=== PATIENT | female | born 1960 | race Two or more races ===

== ENCOUNTER → 2022-01-06 07:58 | Outpatient (BNVA) | payer OTHER, SELFPAY | PROVIDERS: PCP Internal Medicine; Visit Provider Surgery | DX: E66.9 Obesity, unspecified (principal); Z68.35 Body mass index [BMI] 35.0-35.9, adult; I10 Essential (primary) hypertension; E11.9 Type 2 diabetes mellitus without complications; E78.5 Hyperlipidemia, unspecified; G47.30 Sleep apnea, unspecified; K21.9 Gastro-esophageal reflux disease without esophagitis; M19.90 Unspecified osteoarthritis, unspecified site; J44.9 Chronic obstructive pulmonary disease, unspecified; M32.9 Systemic lupus erythematosus, unspecified; Z90.49 Acquired absence of other specified parts of digestive tract | CPT/HCPCS: Q3014 ==

== ENCOUNTER → 2022-01-27 12:30 | Outpatient (BNVA) | payer OTHER, SELFPAY | PROVIDERS: PCP Internal Medicine; Visit Provider Counselor Mental Health | DX: F33.40 Major depressive disorder, recurrent, in remission, unspecified (principal) | CPT/HCPCS: 90791 ==

== ENCOUNTER 2022-01-28 09:46 | Outpatient (REF) | payer OTHER, SELFPAY ==
--- NOTE | ~2022-01-28 | XR_ITS ---
EXAMINATION: XR CHEST CLINICAL INFORMATION: Bariatric service evaluation, E66.9 COMPARISON: None TECHNIQUE: 2 views of the chest were obtained. FINDINGS: Lungs are clear. Vascularity normal. Heart size normal. No airspace consolidation or groundglass opacity. Costophrenic sulci are clear. The hilar and mediastinal contours are normal. No acute bony abnormality. There are surgical clips right upper quadrant abdomen, likely prior cholecystectomy. XR/XR chest 2V IMPRESSION: Unremarkable examination.
--- NOTE | 2022-01-28 09:53 | ECG_ITS ---
Test Reason : obesity Blood Pressure : / mmHG Vent. Rate : 073 BPM Atrial Rate : 073 BPM P-R Int : 172 ms QRS Dur : 090 ms QT Int : 392 ms P-R-T Axes : 065 034 040 degrees QTc Int : 431 ms Normal sinus rhythm with sinus arrhythmia Normal ECG No previous ECGs available Referred By: Mark Quevedo Electronically Signed By:LOTTIE GIL
[2022-01-28 10:03] LABS: MANUAL DIFF FLAG NO
[2022-01-28 11:40] LABS: Estimated Average Glucose 137 mg/dL; Hemoglobin A1c % 6.4 %
[2022-01-28 11:45] LABS: Basophils Percent Auto 0.8 % (0-2); Eosinophils Absolute Auto 0.1 X10*3/uL (0.0-0.4); Eosinophils Percent Auto 3.1 % (0-4); Hematocrit 40.7 % (37.0-47.0); Hemoglobin 12.8 g/dl (12.0-16.0); Lymphocytes Absolute Auto 1.4 X10*3/uL (1.2-4.9); Lymphocytes Percent Auto 38.7 % (20-40); Mean Corpuscular HGB Conc 31.4 g/dl (31.0-35.0); Mean Corpuscular Hemoglobin 27.9 pg (27.0-33.0); Mean Corpuscular Volume 88.9 fL (80.0-98.0); Monocytes Absolute Auto 0.3 X10*3/uL (0.1-1.2); Neutrophils Absolute Auto 1.7 x10*3/uL (2.0-8.3); Neutrophils Percent Auto 48.4 % (45-73); Platelet Count 281 X10*3/uL (160-400); Red Blood Count 4.58 X10*6/uL (4.20-5.50); Red Cell Distribution Width 14.6 % (11.0-16.0); White Blood Count 3.6 X10*3/uL (4.8-10.8)
[2022-01-28 12:25] LABS: Alanine Aminotransferase 24 U/L (0-31); Alkaline Phosphatase 113 U/L (39-117); Anion Gap 17 (12-20); Aspartate Amino Transferase 21 U/L (5-31); Bilirubin Total 0.5 mg/dL (0.0-1.0); Blood Urea Nitrogen 20 mg/dL (9-16); C Reactive Protein 1.21 mg/dL (< or = 0.50); Calcium 9.2 mg/dL (8.4-10.2); Carbon Dioxide 23 mmol/L (22-29); Chloride 106 mmol/L (96-108); Cholesterol 128 mg/dL; Estimated Glomerular Filt Rate > 60; Glucose Random 116 mg/dL (60-115); HDL Cholesterol 47 mg/dL; Iron 50 mcg/dL (30-160); LDL Cholesterol Calculated 65 mg/dl; Percent Iron Saturation 16 % (15-50); Potassium 4.3 mmol/L (3.3-5.1); Sodium 142 mmol/L (135-145); Total Iron Binding Capacity 308 mcg/dL (228-428); Total Protein 7.4 g/dL (6.5-8.0); Triglycerides 83 mg/dL; Unsaturated Iron Binding 258 ug/dL
[2022-01-28 12:27] LABS: Ferritin 32 ng/mL (10-250); TSH reflex Free T4 0.81 uIU/mL (0.32-4.0); Vitamin D 25-OH Total 32.7 ng/mL (>30)
[2022-01-28 12:51] LABS: Folate 16.4 ng/mL (> or = 4.0); Vitamin B12 380 pg/mL (200-900)
[2022-01-28 12:58] LABS: Insulin 22 uU/mL (2-29)
[2022-01-29 12:37] LABS: Calcium (PTHI) 9.2 mg/dL (8.6-10.4); PTHI 47 pg/mL (16-77)
[2022-01-31 23:32] LABS: Zinc 82 mcg/dL (60-130)
[2022-02-01 20:47] LABS: Vitamin A 56 mcg/dL (38-98)
[2022-02-02 14:41] LABS: Vitamin B1 <6 nmol/L (8-30)
== END 2022-01-28 09:47 | disposition home or self-care (01) ==
LOC: HO.XRAY 09:46
PROVIDERS: PCP Internal Medicine; Visit Provider Surgery
DX: M32.9 Systemic lupus erythematosus, unspecified (principal); M19.90 Unspecified osteoarthritis, unspecified site; K21.9 Gastro-esophageal reflux disease without esophagitis; J44.9 Chronic obstructive pulmonary disease, unspecified; I10 Essential (primary) hypertension; G47.30 Sleep apnea, unspecified; E78.5 Hyperlipidemia, unspecified; E11.9 Type 2 diabetes mellitus without complications; E66.9 Obesity, unspecified; Z68.35 Body mass index [BMI] 35.0-35.9, adult; Z90.49 Acquired absence of other specified parts of digestive tract
CPT/HCPCS: 36415; 71046; 80053; 80061; 82306; 82607; 82728; 82746; 83036; 83525; 83540; 83970; 84425; 84443; 84590; 84630; 85025; 86140; 93005

== ENCOUNTER → 2022-01-30 11:03 | Outpatient (BNVA) | payer OTHER, SELFPAY | PROVIDERS: PCP Internal Medicine; Visit Provider Dietitian, Registered | DX: E66.9 Obesity, unspecified (principal) | CPT/HCPCS: 97802 ==

== ENCOUNTER 2022-02-07 06:26 | Day surgery (SDC) | payer OTHER, SELFPAY ==
--- NOTE | 2022-02-01 12:22 | MHC.SHP ---
Pre-Procedural Eval Section A Date of Service: 02/01/22 The patient is an INPATIENT: No The History & Physical has been completed within 30 days and I have reviewed it.: No Section B Chief Complaint: Gastro-esophageal reflux disease without esophagit Relevant Family History (Specify if Yes): No Relevant Social History: None Present Medications: None Medical History: No relevant PMH History of Previous Operations: No relevant previous surgery Allergies: Allergies Allergy/AdvReac Type Severity Reaction Status Date / Time ibuprofen [Ibuprofen] Allergy Unknown THROAT Verified 01/06/22 08:10 CLOSES Review of Systems Sugical H&P ROS: Negative: Constitution, Cardiovascular, Respiratory, Neurological, Psychiatric, Hem-Onc, Allergic/Immunologic, Gastrointestinal, Genitourinary, Musculoskeletal, Integumentary, Endocrine and Eyes/Ears/Nose/Throat Exam Surgical H&P Exam: Normal: HEENT, Normal: Heart, Normal: Lungs, Normal: Extremities, Normal: Abdomen, Normal: Skin and Normal: Neurological Plan Diagnosis/Plan: Unchanged (EGD to assess for esophagitis and Barraza's. Risks of bleeding & perforation were discussed with patient.) I have reviewed the history and physical and performed a pertinent physical examination on my patient. No changes have occurred unless specified.
--- NOTE | 2022-02-06 09:38 | P.CONAN_ITS ---
Documented by User: Charisse Avila NP 02/06/22 09:43 HPI - Anesthesia Eval Consult details Narrative: 61yo F for Upper Endoscopy PMFSH Active Problems Active Problems: All Active Problems (Updated 02/06/22 @ 07:26 by Sydnee Mcconnell, JOANNE) Obesity (Acute) BMI 35.0-35.9,adult (Acute) Hypertension (Acute) Non-insulin dependent type 2 diabetes mellitus (Acute) Hyperlipidemia (Acute) Sleep apnea with use of continuous positive airway pressure (CPAP) (Acute) GERD (gastroesophageal reflux disease) (Acute) DJD (degenerative joint disease) (Acute) COPD (chronic obstructive pulmonary disease) (Acute) Lupus (systemic lupus erythematosus) (Acute) History of cholecystectomy (Acute) Major depressive disorder, recurrent, in remission, unspecified (Acute) Past Medical History Medical History Diabetes Elevated cholesterol GERD (gastroesophageal reflux disease) HTN (hypertension) Lupus Surgical History Surgical History History of back surgery History of History of esophagogastroduodenoscopy (EGD) History of partial hysterectomy Hx of cholecystectomy Hx of colonoscopy Social History Social History Patient Tobacco Use Status: Former Tobacco user Quit Date: 2 yrs ago Use of substances other than those prescribed or required for medical reasons: No Are you DNR?: No Advance Directives: No Advance Directives Information Provided: Yes Meds Allergies Allergy/AdvReac Type Severity Reaction Status Date / Time latex Allergy Hives Verified 02/07/22 06:38 Home Medications Medication Instructions Recorded Confirmed Last Taken Type atorvastatin 20 mg tablet 20 mg PO DAILY 01/02/22 01/06/22 Unknown History blood-glucose meter (FreeStyle #1 ea 01/02/22 01/06/22 Unknown History Lite Meter kit) calcium carbonate 600 mg-vitamin 1 tab PO BID 01/02/22 01/06/22 Unknown History D3 10 mcg (400 unit) tablet diltiazem HCl 300 mg capsule,24 300 mg PO DAILY 01/02/22 01/06/22 Unknown History hr,extended release (Tiadylt ER) estradiol 0.01% (0.1 mg/gram) 0.1 g vaginal QWEEK 01/02/22 01/06/22 Unknown History vaginal cream fluticasone furoate 200 1 ea inhalation DAILY 01/02/22 01/06/22 Unknown History mcg-vilanterol 25 mcg/dose inhalation powder (Breo Ellipta) fluticasone propionate 50 50 spray intranasal PRN Congestion 01/02/22 01/06/22 Unknown History mcg/actuation nasal spray,suspension furosemide 20 mg tablet 20 mg PO DAILY PRN Edema 01/02/22 01/06/22 Unknown History lisinopril 5 mg tablet 5 mg PO DAILY 01/02/22 01/06/22 Unknown History metformin 500 mg tablet 500 mg PO DAILY 01/02/22 01/06/22 Unknown History metoprolol tartrate 25 mg tablet 25 mg PO DAILY 01/02/22 01/06/22 Unknown History nabumetone 750 mg tablet 750 mg PO BID 01/02/22 01/06/22 Unknown History ondansetron HCl 4 mg tablet 4 mg PO Q8H PRN Nausea 01/02/22 01/06/22 Unknown History pantoprazole 40 mg tablet,delayed 40 mg PO BID 01/02/22 01/06/22 Unknown History release Exam Exam Date and Time: February 06, 2022 0938 Pertinent Lab Results Pertinent Lab Results: Laboratory Tests 01/28/22 01/28/22 10:02 10:02 WBC 3.6 L Hgb 12.8 Hct 40.7 Plt Count 281 Sodium 142 Potassium 4.3 Chloride 106 Carbon Dioxide 23 BUN 20 H Creatinine 0.80 Narrative Narrative: EKG 01/2022 Vent. Rate : 073 BPM ? ? Atrial Rate : 073 BPM ?? P-R Int : 172 ms? QRS Dur : 090 ms ? ? QT Int : 392 ms ? ? ? P-R-T Axes : 065 034 040 degrees ?? QTc Int : 431 ms ? Normal sinus rhythm with sinus arrhythmia Normal ECG No previous ECGs available Assessment and Plan Assessment Anesthesia Assessment: Chart Reviewed Documented by User: yAden Mehta MD 02/07/22 07:16 [facility] Past Medical History Medical History Diabetes Elevated cholesterol GERD (gastroesophageal reflux disease) HTN (hypertension) Lupus Family History Family history of problems with anesthesia: No Surgical History Surgical History History of back surgery History of History of esophagogastroduodenoscopy (EGD) History of partial hysterectomy Hx of cholecystectomy Hx of colonoscopy History of Problems with Anesthesia: No Social History Social History Patient Tobacco Use Status: Former Tobacco user Quit Date: 2 yrs ago Use of substances other than those prescribed or required for medical reasons: No Are you DNR?: No Advance Directives: No Advance Directives Information Provided: Yes Meds Allergies Allergy/AdvReac Type Severity Reaction Status Date / Time latex Allergy Hives Verified 02/07/22 06:38 Home Medications Medication Instructions Recorded Confirmed Last Taken Type atorvastatin 20 mg tablet 20 mg PO DAILY 01/02/22 01/06/22 Unknown History blood-glucose meter (FreeStyle #1 ea 01/02/22 01/06/22 Unknown History Lite Meter kit) calcium carbonate 600 mg-vitamin 1 tab PO BID 01/02/22 01/06/22 Unknown History D3 10 mcg (400 unit) tablet diltiazem HCl 300 mg capsule,24 300 mg PO DAILY 01/02/22 01/06/22 Unknown History hr,extended release (Tiadylt ER) estradiol 0.01% (0.1 mg/gram) 0.1 g vaginal QWEEK 01/02/22 01/06/22 Unknown History vaginal cream fluticasone furoate 200 1 ea inhalation DAILY 01/02/22 01/06/22 Unknown History mcg-vilanterol 25 mcg/dose inhalation powder (Breo Ellipta) fluticasone propionate 50 50 spray intranasal PRN Congestion 01/02/22 01/06/22 Unknown History mcg/actuation nasal spray,suspension furosemide 20 mg tablet 20 mg PO DAILY PRN Edema 01/02/22 01/06/22 Unknown History lisinopril 5 mg tablet 5 mg PO DAILY 01/02/22 01/06/22 Unknown History metformin 500 mg tablet 500 mg PO DAILY 01/02/22 01/06/22 Unknown History metoprolol tartrate 25 mg tablet 25 mg PO DAILY 01/02/22 01/06/22 Unknown History nabumetone 750 mg tablet 750 mg PO BID 01/02/22 01/06/22 Unknown History ondansetron HCl 4 mg tablet 4 mg PO Q8H PRN Nausea 01/02/22 01/06/22 Unknown History pantoprazole 40 mg tablet,delayed 40 mg PO BID 01/02/22 01/06/22 Unknown History release Exam Airway Mallampati Class: II TM Dist: >3cm Neck ROM: Full Denture: Upper and Lower Loose/Missing/Broken Teeth: Yes Heart: [id number] Lungs: cta b/l Assessment and Plan Assessment Anesthesia Assessment: Anesthesia Plan Discussed Final Anesthetic Review Family History of Problems with Anesthesia: No History of Problems with Anesthesia: No NPO: Yes ASA Class: III Final Preanesthetic Review: No Changes in Pt Med Stat, Meds/Allgs Chart Reviewed, Consent Obtained/Reviewed and Anes Risks/Benef Reviewed Patient Risk: Intermediate Procedure Risk: Low Assessment/Block/Sedation in SS: Assess/Block/Sedation-SS Anesthetic Plan Anesthetic Plan: MAC: and Agree w/ Assess. and Plan Disposition: Standard PACU
[2022-02-06 12:46] LABS: COVID-19 Test Negative (Negative); IDNOW Serial# 16C4AD1C
[2022-02-07 06:43] VITALS: BMI 35.5
[2022-02-07 07:16] VITALS: BP 132/61; PULSE 60; RESP 16; TEMP 36.1; O2SAT 97
[2022-02-07] MEDS: Lactated Ringers 1,000 ML 80 ML IVCONT (07:17)
[2022-02-07 07:25] LABS: Glucose, Whole Blood 102 mg/dL (60-115)
--- NOTE | 2022-02-07 08:03 | P.BOP_ITS ---
Brief Operative Note Date of Service: 02/07/22 Pre-op diagnosis: GERD Post-op diagnosis: same Procedure: PROCEDURE DATE: 02/07/2022 PREOPERATIVE DIAGNOSIS: GERD POSTOPERATIVE DIAGNOSIS: ?Same as above. 1) esophagitis grade II, 2) distal gastritis, 3) duodenitis PROCEDURE: [id number] with biopsies Surgeon: ?Eber Quevedo M.D.. Ph.D. Photographic Enlarger Operator: None ? Anesthesia: IV sedation Estimated blood loss: ?Minimal FINDINGS AND PROCEDURE: ? OPERATIVE INDICATIONS: ?The patient is a 61 year old female known to me who is interested in bariatric surgery. The patient has severe GERD and is unable to discontinue PPIs for 2 weeks to perform the H pylori breath test. Based on this information I recommended an upper endoscopy to evaluate the patient's symptoms. Risks and complications of the surgery were discussed with the patient in advance particularly the possibility of perforation or bleeding that may require surgical intervention. The patient understood the risks and was in agreement with the plan. ? PROCEDURE: After informed consent was obtained by the patient, the patient was ?transferred to the Operating Room and was placed in the supine position.? After successful induction of IV sedation, a mouth block was inserted and the patient was placed in the left lateral decubitus position. An upper endoscopy was performed next, the oropharynx and esophagus appeared within the normal limits. There was no hiatal hernia. The z-line was irregular with iselts of gastric mucosa within the esophageal lining encompassing about 50% of circumference.. Two biopsies were obtained from the distal esohagus 2-3 cm proximal to the GE junction and two additional biopsies from the GE junction. The stomach was entered and it appeared to be of normal size. There was mild gastritis at distal antrum. There was no stricture or ulcer. Retroflexion was performed and no pathology was noted near the GE junction. Biopsies were obtained from the gastric fundus as well as the distal antrum. No significant bleeding was noted from any of the biopsy sites. The scope was then advanced into the duodenum which appeared to be somewhat inflamed. One biopsy was obtained from the 2nd portion of the duodenum. At that point the duodenum ?and the sleeve were decompressed and the scope was withdrawn from the patient's mouth. The patient extubated and was transferred in stable condition to the Recovery Room for further care. I was present and performed all steps of the procedure. There were no residents to assist with this case. Eber Quevedo M.D., Ph.D. Surgeon: Mark Quevedo MD Anesthesia: MAC Was an Photographic Enlarger Operator used for this Procedure?: No Estimated blood loss (mL): 0 IV fluids (mL): 350 Urine output (mL): 0 (No Zuniga to record) Pathology: other (1) GE junction x2, 2) distal esophagus x2, 3) antrum x1, 4) fundus x1, 5) duodenum x1) Condition: stable Disposition: PACU
[2022-02-07 08:31] VITALS: BP 113/67; PULSE 73; RESP 16; TEMP 36.1; O2SAT 97
[2022-02-07 08:46] VITALS: BP 108/74; PULSE 78; RESP 16; TEMP 36.8; O2SAT 100
== END 2022-02-07 09:41 | disposition home or self-care (01) ==
PROVIDERS: Physician Assistant Surgical; PCP Internal Medicine; Visit Provider Surgery
PROC: 0DJ08ZZ Inspection of Upper Intestinal Tract, Via Natural or Artificial Opening Endoscopic (ICD-10-PCS; CPT 43235; principal; 2022-02-07 07:30)
DX: K21.9 Gastro-esophageal reflux disease without esophagitis (principal); K20.80 Other esophagitis without bleeding; K29.60 Other gastritis without bleeding; K29.80 Duodenitis without bleeding; J45.909 Unspecified asthma, uncomplicated; E11.9 Type 2 diabetes mellitus without complications; E78.00 Pure hypercholesterolemia, unspecified; I10 Essential (primary) hypertension; M32.9 Systemic lupus erythematosus, unspecified; J44.9 Chronic obstructive pulmonary disease, unspecified; G47.33 Obstructive sleep apnea (adult) (pediatric); Z79.1 Long term (current) use of non-steroidal anti-inflammatories (NSAID); Z79.51 Long term (current) use of inhaled steroids; Z79.84 Long term (current) use of oral hypoglycemic drugs; Z79.899 Other long term (current) drug therapy; Z91.040 Latex allergy status; Z20.822 Contact with and (suspected) exposure to COVID-19; Z87.891 Personal history of nicotine dependence
CPT/HCPCS: 43239; 82947; 87635; 88305; 88342; J2250; J2405

== ENCOUNTER → 2022-02-14 09:33 | Outpatient (BNVA) | payer OTHER, SELFPAY | PROVIDERS: PCP Internal Medicine; Visit Provider Surgery | DX: E51.9 Thiamine deficiency, unspecified (principal); E53.8 Deficiency of other specified B group vitamins; E66.9 Obesity, unspecified; Z68.35 Body mass index [BMI] 35.0-35.9, adult; I10 Essential (primary) hypertension; E11.9 Type 2 diabetes mellitus without complications | CPT/HCPCS: Q3014 ==

== ENCOUNTER → 2022-02-19 10:30 | Outpatient (BNVA) | payer OTHER, SELFPAY | PROVIDERS: PCP Internal Medicine; Visit Provider Counselor Mental Health | DX: F33.40 Major depressive disorder, recurrent, in remission, unspecified (principal) | CPT/HCPCS: 90832 ==

== ENCOUNTER → 2022-02-27 11:16 | Outpatient (BNVA) | payer OTHER, SELFPAY | PROVIDERS: PCP Internal Medicine; Referring Provider Surgery; Visit Provider Dietitian, Registered | DX: E66.9 Obesity, unspecified (principal) | CPT/HCPCS: 97803 ==

== ENCOUNTER 2022-03-03 07:54 | Outpatient (REF) | payer OTHER, SELFPAY ==
--- NOTE | ~2022-03-03 | US_ITS ---
EXAMINATION: US COMPLETE ABDOMEN WITH LIVER ELASTOGRAPHY CLINICAL INFORMATION: Obesity COMPARISON: None. TECHNIQUE: Real-time imaging of the abdominal viscera. Noninvasive ultrasound liver fibrosis assessment is performed using Ward ElastPQ point quantification shear wave elastography (2D-SWE) with a C5-2 MHz transducer. Multiple elastography samples are obtained. FINDINGS: PANCREAS: The visualized pancreatic head and body are normal in appearance. The remainder of the pancreas is obscured from visualization by the overlying bowel gas. ABDOMINAL AORTA: The proximal, middle, and distal aortic segments are normal in caliber. INFERIOR VENA CAVA: Visualized portions are normal. LIVER: Liver echotexture is increased. The liver demonstrates normal size, and contour. No focal lesion or intrahepatic biliary duct dilatation. The right lobe measures 16 cm in length. The left lobe measures 10 cm in length. Portal flow is normal/hepatopedal Shear wave liver elastography median stiffness is 1.6 m/s (reference: normal median stiffness is 1.3 m/s or less). IQR/median stiffness to assess sampling precision is 0.13 (reference: good quality data set is IQR/median stiffness of 0.15 or less). GALLBLADDER: Surgically removed. COMMON BILE DUCT: Normal in caliber measuring 0.4 cm in diameter. RIGHT KIDNEY: Normal. No hydronephrosis. No renal calculi or focal parenchymal lesions. The kidney measures 11 cm in maximum dimension. LEFT KIDNEY: There is a 1.2 x 1.3 cm cyst in the upper pole. No hydronephrosis. No renal calculi or focal parenchymal lesions. The kidney measures 10 cm in maximum dimension. SPLEEN: Normal. The spleen measures 9 cm in maximum dimension. FREE FLUID: None. US/US abdomen comp w elastography IMPRESSION: 1. Impression: Echogenic liver probably representing fatty infiltration. Limited visualization of the tail the pancreas. Small left renal cyst. 2. Liver elastography: Adequate liver sampling. In the absence of other known clinical signs, rules out compensated advanced chronic liver disease. REFERENCE: Society of Radiologists in Ultrasound Liver Stiffness Thresholds (2020): LIVER STIFFNESS THRESHOLDS: *Liver Stiffness equal or less than 1.3 m/s: High probability of being normal. *Liver Stiffness less than 1.7 m/s: In the absence of other known clinical signs, rules out compensated advanced chronic liver disease. *Liver Stiffness 1.7-2.1 m/s: Suggestive of compensated advanced chronic liver disease but need further test for confirmation. *Liver Stiffness over 2.1 m/s: Rules in compensated advanced chronic liver disease. *Liver Stiffness over 2.4 m/s: Suggestive of clinically significant portal hypertension. QUALITY OF DATA SET: *IQR/Median value equal or less than 0.15 implies a quality data set. *IQR/Median value over 0.15 implies a poor quality data set. SIGNIFICANT CHANGE FROM PRIOR EXAM: Significant change if liver stiffness measurement is 10% or greater from prior exam. OTHER CONSIDERATIONS: The stage of liver fibrosis may be overestimated in the setting of acute hepatitis, liver inflammation, elevated liver function tests, hepatic vascular congestion, obstructive cholestasis, non-fasting state, and infiltrative diseases such as amyloidosis and lymphoma. In some patients with NAFLD, the liver stiffness thresholds for compensated advanced chronic liver disease may be lower. In causes other than viral hepatitis and NAFLD, liver stiffness thresholds are not well established.
--- NOTE | ~2022-03-03 | FL_ITS ---
EXAMINATION: XR FLUOROSCOPY UPPER GI WITH AIR CLINICAL INFORMATION: Obesity COMPARISON: None TECHNIQUE: Routine upper GI air-contrast study was performed in upright and lying positions. FINDINGS: Following oral administration of thick barium and effervescent granules, is normal propagation of bolus from the oral cavity through the pharynx, esophagus into stomach without any evidence of obstruction, narrowing or stricture. On placing patient supine and prone lying, the course, caliber and peristalsis of the stomach, duodenal bulb and the sweep is normal. The mucosal pattern of the stomach and duodenal bulb is normal. Mild gastroesophageal reflux seen without hiatal hernia. There are surgical williams in the right upper quadrant from previous cholecystectomy. There are bilateral pedicular screws and interconnecting rods at the L4-L5 vertebra with intervening disc prosthesis for fusion. FLUOROSCOPY TIME: 1.9 minutes. DOSE AREA PRODUCT: 32.510 uGy-m2 (microgray-meter squared) FL/FL upper GI w air IMPRESSION: Mild gastroesophageal reflux without hiatal hernia.
== END 2022-03-03 07:55 | disposition home or self-care (01) ==
LOC: HO.US 07:54
PROVIDERS: Visit Provider Surgery
DX: Z01.818 Encounter for other preprocedural examination (principal); E66.9 Obesity, unspecified; Z68.35 Body mass index [BMI] 35.0-35.9, adult; K21.9 Gastro-esophageal reflux disease without esophagitis; Z90.49 Acquired absence of other specified parts of digestive tract
CPT/HCPCS: 74246; 76705; 76981

== ENCOUNTER → 2022-03-12 13:43 | Outpatient (BNVA) | payer OTHER, SELFPAY | PROVIDERS: PCP Internal Medicine; Visit Provider Counselor Mental Health | DX: F33.40 Major depressive disorder, recurrent, in remission, unspecified (principal) | CPT/HCPCS: 90832 ==

== ENCOUNTER → 2022-03-17 08:11 | Outpatient (BNVA) | payer OTHER, SELFPAY | PROVIDERS: PCP Internal Medicine; Visit Provider Surgery | DX: E66.9 Obesity, unspecified (principal); Z68.35 Body mass index [BMI] 35.0-35.9, adult | CPT/HCPCS: Q3014 ==

== ENCOUNTER → 2022-04-14 08:08 | Outpatient (BNVA) | payer OTHER, SELFPAY | PROVIDERS: PCP Internal Medicine; Visit Provider Surgery | DX: E66.9 Obesity, unspecified (principal); Z68.33 Body mass index [BMI] 33.0-33.9, adult | CPT/HCPCS: Q3014 ==

== ENCOUNTER → 2022-04-25 08:11 | Outpatient (BNVA) | payer OTHER, SELFPAY | PROVIDERS: PCP Internal Medicine; Visit Provider Surgery | DX: E66.9 Obesity, unspecified (principal); Z68.33 Body mass index [BMI] 33.0-33.9, adult | CPT/HCPCS: Q3014 ==

== ENCOUNTER 2022-05-16 08:33 | Outpatient (REF) | payer OTHER, SELFPAY ==
--- NOTE | ~2022-05-16 | XR_ITS ---
EXAMINATION: XR chest 2V CLINICAL INFORMATION: Reason for Exam U07.1 - COVID-19 COMPARISON: Chest radiograph 01/28/2022 TECHNIQUE: 2 views of the chest FINDINGS: Clear lungs. No pneumothorax or pleural effusion. Normal cardiomediastinal silhouette. XR/XR chest 2V Impression: * Clear lungs.
[2022-05-16 10:57] LABS: Influenza A PCR NEGATIVE (Negative); Influenza B PCR NEGATIVE (Negative); Resp Syncy Virus RNA Qual PCR NEGATIVE (Negative); SARS COV2 PCR INHOUSE NEGATIVE (Negative)
== END 2022-05-16 08:34 | disposition home or self-care (01) ==
LOC: HO.LAB 08:33
PROVIDERS: PCP Internal Medicine; Visit Provider Surgery
DX: U07.1 COVID-19 (principal); E66.9 Obesity, unspecified; R51.9 Headache, unspecified; Z68.32 Body mass index [BMI] 32.0-32.9, adult
CPT/HCPCS: 0241U; 71046; 99212

== ENCOUNTER 2022-05-23 06:48 | Inpatient (IN) | payer OTHER, SELFPAY ==
--- NOTE | 2022-05-09 22:24 | MHC.SHP ---
Pre-Procedural Eval Section A Date of Service: 05/09/22 The patient is an INPATIENT: Yes The History & Physical has been completed within 30 days and I have reviewed it.: Yes Section B Chief Complaint: obesity Relevant Family History (Specify if Yes): No Relevant Social History: None Present Medications: None Medical History: No relevant PMH History of Previous Operations: Relevant previous surgery/procedure and date(s) (open cholecystectomy) Allergies: Allergies Allergy/AdvReac Type Severity Reaction Status Date / Time latex Allergy Severe Hives Verified 05/01/22 16:30 codeine AdvReac Gastrointestinal Verified 05/01/22 16:34 Upset Review of Systems Sugical H&P ROS: Negative: Constitution, Cardiovascular, Respiratory, Neurological, Psychiatric, Hem-Onc, Allergic/Immunologic, Gastrointestinal, Genitourinary, Musculoskeletal, Integumentary, Endocrine and Eyes/Ears/Nose/Throat Exam Surgical H&P Exam: Normal: HEENT, Normal: Heart, Normal: Lungs, Normal: Extremities, Normal: Abdomen, Normal: Skin and Normal: Neurological Plan Diagnosis/Plan: Unchanged I have reviewed the history and physical and performed a pertinent physical examination on my patient. No changes have occurred unless specified. Time Spent With Patient Time: Total time managing care of this patient today ____ minutes.
[2022-05-12 10:11] LABS: COVID-19 Test Positive (Negative); IDNOW Serial# BCCEAD1C
--- NOTE | 2022-05-12 11:39 | P.CONAN_ITS ---
HPI - Anesthesia Eval Consult details Narrative: 62yo F for Gastrectomy Sleeve, Possible diaphragmatic hernia,Possible ventral hernia,possible open PMFSH Active Problems Active Problems: All Active Problems (Updated 05/12/22 @ 09:38 by Mark Quevedo MD) COVID (Acute) Obesity (Acute) BMI 35.0-35.9,adult (Acute) Hypertension (Acute) Non-insulin dependent type 2 diabetes mellitus (Acute) Hyperlipidemia (Acute) Sleep apnea with use of continuous positive airway pressure (CPAP) (Acute) GERD (gastroesophageal reflux disease) (Acute) DJD (degenerative joint disease) (Acute) COPD (chronic obstructive pulmonary disease) (Acute) Lupus (systemic lupus erythematosus) (Acute) History of cholecystectomy (Acute) Major depressive disorder, recurrent, in remission, unspecified (Acute) Vitamin B1 deficiency (Acute) Vitamin B12 deficiency (Acute) BMI 33.0-33.9,adult (Acute) Past Medical History Medical History (Updated 05/12/22 @ 09:38 by Mark Quevedo MD) Asthma Diabetes Elevated cholesterol GERD (gastroesophageal reflux disease) History of COVID-19 HTN (hypertension) Lupus Family History Family history of problems with anesthesia: No Surgical History Surgical History History of back surgery History of History of esophagogastroduodenoscopy (EGD) History of partial hysterectomy Hx of cholecystectomy Hx of colonoscopy History of Problems with Anesthesia: No Social History Social History (Updated 05/02/22 @ 09:12 by Evelyn Barber RN) Are you a primary career specialist to a significant other at home: No Do you presently have visiting nurse or other home services: No Patient Tobacco Use Status: Former Tobacco user Quit Date: 2020 Meds Allergies Allergy/AdvReac Type Severity Reaction Status Date / Time latex Allergy Severe Hives Verified 05/01/22 16:30 codeine AdvReac Gastrointestinal Verified 05/01/22 16:34 Upset Home Medications Medication Instructions Recorded Confirmed Last Taken Type atorvastatin 20 mg tablet 20 mg PO DAILY 01/02/22 04/25/22 Unknown History blood-glucose meter (FreeStyle #1 ea 01/02/22 04/25/22 Unknown History Lite Meter kit) calcium carbonate 600 mg-vitamin 1 tab PO BID 01/02/22 05/02/22 Unknown History D3 10 mcg (400 unit) tablet diltiazem HCl 300 mg capsule,24 300 mg PO DAILY 01/02/22 04/25/22 Unknown History hr,extended release (Tiadylt ER) estradiol 0.01% (0.1 mg/gram) 0.1 g vaginal QWEEK 01/02/22 04/25/22 Unknown History vaginal cream fluticasone furoate 200 1 ea inhalation DAILY 01/02/22 05/02/22 Unknown History mcg-vilanterol 25 mcg/dose inhalation powder (Breo Ellipta) fluticasone propionate 50 50 spray intranasal PRN Congestion 01/02/22 04/25/22 Unknown History mcg/actuation nasal spray,suspension furosemide 20 mg tablet 20 mg PO DAILY PRN Edema 01/02/22 04/25/22 Unknown History lisinopril 5 mg tablet 10 mg PO DAILY 01/02/22 05/02/22 Unknown History metoprolol tartrate 25 mg tablet 25 mg PO DAILY 01/02/22 05/02/22 Unknown History nabumetone 750 mg tablet 750 mg PO BID 01/02/22 04/25/22 Unknown History ondansetron HCl 4 mg tablet 4 mg PO Q8H PRN Nausea 01/02/22 05/02/22 Unknown History pantoprazole 40 mg tablet,delayed 40 mg PO BID 01/02/22 04/25/22 Unknown History release Exam Exam Date and Time: May 12, 2022 1139 Pertinent Lab Results Pertinent Lab Results: Laboratory Tests 05/12/22 09:53 COVID-19 ([facility]) Positive A COVID-19 Clin Com See Note Laboratory Tests 05/01/22 05/01/22 09:17 09:17 WBC 4.1 L Hgb 14.3 Hct 44.7 Plt Count 266 Sodium 141 Potassium 4.3 Chloride 103 Carbon Dioxide 29 BUN 22 H Creatinine 0.80 Narrative Narrative: EKG 01/2022 Vent. Rate : 073 BPM ? ? Atrial Rate : 073 BPM ?? P-R Int : 172 ms? QRS Dur : 090 ms ? ? QT Int : 392 ms ? ? ? P-R-T Axes : 065 034 040 degrees ?? QTc Int : 431 ms ? Normal sinus rhythm with sinus arrhythmia Normal ECG No previous ECGs available Assessment and Plan Assessment Anesthesia Assessment: Chart Reviewed Final Anesthetic Review Family History of Problems with Anesthesia: No History of Problems with Anesthesia: No
[2022-05-13 11:35] LABS: COVID-19 Test Positive (Negative); IDNOW Serial# BCCEAD1C
--- NOTE | 2022-05-13 12:03 | PC.NURSE ---
Patient sent home due to symptomatic Covid + results per Dr. Molina, Dr. Mehta, and Dr. Bravo.
[2022-05-23] VITALS (11 sets, daily range): BP systolic 94–158; BP diastolic 48–86; PULSE 59–97; RESP 11–20; TEMP 36.2–36.7; O2SAT 93–98; BMI 33.3
--- NOTE | 2022-05-23 07:12 | HO.ANESPROP2 ---
[facility] Active Problems Active Problems: All Active Problems (Updated 05/16/22 @ 09:58 by Mark Quevedo MD) BMI 32.0-32.9,adult (Acute) COVID (Acute) Obesity (Acute) BMI 35.0-35.9,adult (Acute) Hypertension (Acute) Non-insulin dependent type 2 diabetes mellitus (Acute) Hyperlipidemia (Acute) Sleep apnea with use of continuous positive airway pressure (CPAP) (Acute) GERD (gastroesophageal reflux disease) (Acute) DJD (degenerative joint disease) (Acute) COPD (chronic obstructive pulmonary disease) (Acute) Lupus (systemic lupus erythematosus) (Acute) History of cholecystectomy (Acute) Major depressive disorder, recurrent, in remission, unspecified (Acute) Vitamin B1 deficiency (Acute) Vitamin B12 deficiency (Acute) BMI 33.0-33.9,adult (Acute) Past Medical History Medical History (Updated 05/16/22 @ 09:58 by Mark Quevedo MD) Asthma Diabetes Elevated cholesterol GERD (gastroesophageal reflux disease) History of COVID-19 HTN (hypertension) Lupus Family History Family history of problems with anesthesia: No Surgical History Surgical History History of back surgery History of History of esophagogastroduodenoscopy (EGD) History of partial hysterectomy Hx of cholecystectomy Hx of colonoscopy History of Problems with Anesthesia: No Social History Social History Are you a primary animal caretaker to a significant other at home: No Do you presently have visiting nurse or other home services: No Patient Tobacco Use Status: Former Tobacco user Quit Date: 2020 Advance Directives: No Advance Directives Information Provided: No Meds Allergies Allergy/AdvReac Type Severity Reaction Status Date / Time latex Allergy Severe Hives Verified 05/23/22 07:09 codeine AdvReac Gastrointestinal Verified 05/23/22 07:09 Upset Active Medications: Current Medications Albuterol Sulfate (Albuterol Sulfate (0.083%) 2.5 Mg/3 Ml Vial.Neb) 2.5 mg INHALE ONCE PRN PRN Reason: Shortness of Breath/Wheezing Lactated Ringer's (Lr) 1,000 mls @ 100 mls/hr IVCONT .Q10H VALERIA Lactated Ringer's (Lr) 1,000 mls @ 999 mls/hr IV .Q1H1M VALERIA Stop: 05/23/22 09:00 Cefazolin Sodium/Dextrose (Ancef) 2 gm in 50 mls @ 100 mls/hr IV PREOP ONE Stop: 05/23/22 07:17 Home Medications Medication Instructions Recorded Confirmed Last Taken Type atorvastatin 20 mg tablet 20 mg PO DAILY 01/02/22 04/25/22 Unknown History blood-glucose meter (FreeStyle #1 ea 01/02/22 04/25/22 Unknown History Lite Meter kit) calcium carbonate 600 mg-vitamin 1 tab PO BID 01/02/22 05/02/22 Unknown History D3 10 mcg (400 unit) tablet estradiol 0.01% (0.1 mg/gram) 0.1 g vaginal QWEEK 01/02/22 04/25/22 Unknown History vaginal cream fluticasone furoate 200 1 ea inhalation DAILY 01/02/22 05/02/22 Unknown History mcg-vilanterol 25 mcg/dose inhalation powder (Breo Ellipta) fluticasone propionate 50 50 spray intranasal PRN Congestion 01/02/22 04/25/22 Unknown History mcg/actuation nasal spray,suspension lisinopril 5 mg tablet 10 mg PO DAILY 01/02/22 05/02/22 Unknown History metoprolol tartrate 25 mg tablet 25 mg PO DAILY 01/02/22 05/02/22 Unknown History nabumetone 750 mg tablet 750 mg PO BID 01/02/22 04/25/22 Unknown History Exam Exam Date and Time: May 23, 2022 0712 Pertinent Lab Results Pertinent Lab Results: Laboratory Tests 05/12/22 05/13/22 09:53 11:07 COVID-19 ([facility]) Positive A Positive A COVID-19 Clin Com See Note See Note Airway Mallampati Class: II TM Dist: >3cm Neck ROM: Full Denture: Upper Assessment and Plan Assessment Anesthesia Assessment: Anesthesia Plan Discussed and Chart Reviewed Final Anesthetic Review Family History of Problems with Anesthesia: No History of Problems with Anesthesia: No NPO: Yes ASA Class: III Final Preanesthetic Review: No Changes in Pt Med Stat, Meds/Allgs Chart Reviewed, Consent Obtained/Reviewed and Anes Risks/Benef Reviewed Patient Risk: Intermediate Procedure Risk: Intermediate Anesthetic Plan Anesthetic Plan: GA Disposition: Standard PACU
[2022-05-23 08:13] LABS: Glucose, Whole Blood 113 mg/dL (60-115)
[2022-05-23] MEDS: Lactated Ringers 1,000 ML 100 ML IVCONT ×3 (08:14→18:37)
[2022-05-23] MEDS: Lactated Ringers 1,000 ML 999 ML IV (08:15)
--- NOTE | 2022-05-23 08:30 | PC.NURSE ---
This nurse instructed not to obtain preop covid swab per Jamshid Moore. Dr. Molina, Dr. Dong, and Dr. Mehta all aware. No new orders at this time. Per Jamshid Moore, PACU to obtain covid swab before patient goes up to floor. Nurse Kaitlin Robledo aware.
--- NOTE | 2022-05-23 09:10 | P.BOP_ITS ---
Brief Operative Note Date of Service: 05/23/22 Pre-op diagnosis: Obesity with comorbidities (see below) Post-op diagnosis: same Procedure: INITIAL PATIENT BMI ON PRESENTATION AT OUR OFFICE: 36.6 kg/m2 LAST BMI BEFORE SURGERY: 33.2 kg/m2 COMORBIDITIES: sleep apnea on CPAP, hyperlipidemia, hypertension, non-insulin dependent diabetes, systemic lupus, GERD, asthma, back pain, liver fibrosis, asthma ?The patient presented to the Weight Management Program with significant obesity that was negatively impacting the patient's comorbidities as listed above.? The program is a phased program with a special focus on preoperative medical weight management to promote substantial weight loss and prepare the patients for the second phase of the program: bariatric surgery. The patient participated in an intensive weekly lifestyle ?intervention and exercise program during which the patient ?has lost between the initial office visit and the last preoperative visit 18.7 lbs, or 8.76% of initial actual body weight. It was deemed appropriate for the patient to now have bariatric surgery. In light of the current Covid-19 pandemic and the well documented strong association of obesity and increased risk of worse outcomes if infected with Covid-19 (REFERENCES: https://pubmed.ncbi.nlm.nih.gov/85600737/ ,? https://pubmed.ncbi.nlm.nih.gov/30338129/ ), any delay in undergoing bariatric surgery may lead to the patient's worsening health condition and increased?risk of more severe Covid-19 disease if infected. In addition a recent?study from [facility] published in [facility] on 04/22/2021 (file :///[id number]) found that, among patients with obesity, substantial weight loss achieved with surgery was associated with improved outcomes of COVID-19 infection. The findings suggest that obesity can be a modifiable risk factor for the severity of COVID-19 infection. In addition, the patient met the BMI-criteria for bariatric surgery based on the BMI on initial presentation. The patient should not be penalized for achieving such weight loss because ?it is not sustainable long-term without surgical intervention and it was achieved in preparation for bariatric surgery ?under my direction and based on my published research ([email or web address]).[email or web address] and? https://www.soard.org/article/[email or web address](08)28288-X/pdf ) ?that a 10% preoperative weight loss improves long-term weight loss after surgery and reduces perioperative complications.? Insurance carriers such as [facility] have endorsed my recommendations ?and have included in their policies criteria to include a 10% preoperative weight loss requirement. PROCEDURE: Esophago-gastroscopy, extensive laparoscopic lysis of adhesions, laparoscopic sleeve gastrectomy and laparoscopic gastropexy INDICATIONS: This is a 62 year-old female who was electively scheduled for laparoscopic, possibly open sleeve gastrectomy. The risks and complications of the procedure were discussed with the patient in advance, particularly the possibility of ; pulmonary embolism; staple line leak; bleeding; GERD; cardiac, pulmonary, or renal complications; as well as long-term problems such as insufficient weight loss, vitamin deficiency, strictures, or ulcers. The patient understood all the risks, and was in agreement to proceed with surgery. DESCRIPTION OF PROCEDURE: After informed consent was obtained from the patient, the patient was given preoperative antibiotics, and was transferred to the operating room. After succ essful induction of general anesthesia, pneumatic compression devices were placed on both lower extremities. An upper endoscopy was performed next. The oropharynx and esophagus appeared to be within normal limits. There was a diaphragmatic hernia present of moderate size consistent with the findings of the preoperative upper GI. The stomach was entered. Then after all fluid and air were suctioned and the stomach was fully decompressed, the scope was withdrawn and secured in the mid esophagus. The patient was then prepped and draped in the usual sterile manner, and abdominal access was established at the left upper quadrant with the Veress needle due to anticopated adhesions at the upper quadrant from the open cholecystectomy. The abdomen was insufflated with CO2 to a pressure of 15 mmHg and a 5 mm Versi step port was placed at the left mid-flank. The area where the needle was inserted, was inspected and there was no injury. Under direct visualization, two additional 5 mm Versi step ports were placed at the left of the umbilicus and at the left upper quadrant. 1% lidocaine plain was used to infiltrate all port sites as well as all fascia defects. There were extensive adhesions in the abdomen from previous open cholecystectomy involving the omentum, transverse colon and the anterior abdominal wall. Those were lysed completely with the ultrasonic device. Once the adhesions were lysed, using the Dano technique a 12 mm blunt port was inserted just to the right of the midline. Two additional 5 mm Versi-step ports were place, one to the left upper quadrant, and a 5 mm Versi-Step port to the right upper quadrant. Following that, the patient was placed in a steep reverse Trendelenburg position. An additional 5 mm port was placed to the right flank for the Mediflex retractor that was used to retract the left lobe of the liver. The gastro-esophageal fat pad was opened with the ultrasonic device (Thunderbeat, Olympus) and the anterior esophagus and hiatus were exposed. The angle of His was opened with the ultrasonic device the fundus of the stomach from any diaphragmatic and splenic attachments. I then opened the gastrocolic ligament between the transverse colon and the greater curvature of the stomach with the ultrasonic device to enter the lesser sac and facilitate the ligation of the short gastric vessels. I started at a mid-point along the greater curvature and using the Thunderbeat, all short gastric vessels were divided all the way to the angle of His until the left makiel was completely dissected at its entirety. I then divided the gastro-colic ligament distally to a distance of about 3-4 cm proximal to the pylorus. There were extensive congenital adhesions between the pancreas and posterior gastric wall. Those were lysed completely with the ultrasonic device. Adhesiolysis took approximately 45 min to complete. The stomach was then divided transversely with one Endo CURRY-45 purple, one CURRY- 45 orange load and four CURRY-60 articulating orange loads using the AEON stapler and loads. Every effort was made that the gastric sleeve had a tubular shape and an even caliber throughout. Once the sleeve resection was completed, the staple line of the gastric sleeve was reinforced with Hemoclips. The resected stomach was retrieved without difficulty from the Dano port. A gastropexy was then performed in order to prevent postoperative GERD and partial gastric volvulus. Several interrupted 2.0 Surgidac sutures were placed between the sleeve's staple line and the previously divided greater omentum and gastro-colic ligament using the Endo-Stitch device. ?An upper endoscopy was performed. There was no narrowing at the GE junction. The scope was easily advanced all the way to the pylorus which was clearly visualized. There was no narrowing anywhere and the sleeve's caliber was even throughout. The sleeve's staple line was inspected and there was no evidence of ischemia, bleeding or dehiscence. At that point the gastroscope was withdrawn from the patient?s mouth while we were decompressing the bowel and the stomach from any remaining air. I looked into the lesser sac to see how the sleeve was situating and it was situating well. There was no bleeding from the staple line, spleen, or short gastric vessels. The Mediflex retractor was removed, and the undersurface of the liver was inspected and there was no bleeding. The patient was placed in supine position. I closed the fascial defect of the 12 mm port site with a figure of eight #1 Polysorb suture. Then Ropivacaine 30cc plain with 10 mg of Dexamethasone were used to infiltrate the fascial closure as well as all skin incisions. A total of 7ml of Zynrelef was applied in the Dano wound. At this point, the abdomen was deflated, all ports were removed under direct vision, and no bleeding was noted from any of the port sites. The skin incisions were irrigated with saline and were closed with 4-0 absorbable monofilament sutures. Steri-Strips and OpSites were used to cover all incisions. The patient was extubated and was transferred in stable condition to the recovery room for further care. I was present and performed all masterson parts of the procedure. Ms. Bell was the faculty research assistant. There were no residents to assist with this case. Eber Quevedo MD, PhD, FACS Surgeon: Mark Quevedo MD Anesthesia: GETA, local and other (TAP fredy and 7ml Zynrelef) Was an Ticket Taker used for this Procedure?: No Ticket Taker: Nilam Bell Estimated blood loss (mL): 10 IV fluids (mL): 2,000 Urine output (mL): 0 (No Zuniga to record output) Pathology: other (Stomach) Condition: stable Disposition: PACU
[2022-05-23] MEDS: ceFAZolin Sodium/Dextrose,Iso 2 GM/50 ML PIGGYBACK IV ×2 (09:13→14:14)
[2022-05-23] MEDS: Acetaminophen 1,000 MG/100 ML PIGGYBACK 400 MG IV (11:05)
--- NOTE | 2022-05-23 12:22 | PM.DS ---
DS: Providers Provider Date of Service: 05/24/22 Date of admission: 05/23/22 06:48 Primary care physician: Roberto Chang MD DS: Summary Hospital Course Hospital Course: ADMITTING DIAGNOSIS: morbid obesity,?type 2 DM, HTN, HLD, MERVIN, GERD, DJD, COPD, lupus, depression DISCHARGE DIAGNOSIS: same, s/p laparoscopic sleeve gastrectomy and gastropexy PAST SURGICAL HISTORY:?cholecystectomy, PROCEDURE: upper endoscopy, laparoscopic sleeve gastrectomy and gastropexy DISCHARGE SUMMARY: History of Present Illness: ? The patient is a?62? year-old woman with a BMI of? 36.6 kg/m2 and associated co-morbidities as described above. The patient had extensive work-up, lost ?25.4? lbs preoperatively and was electively scheduled for laparoscopic, possible open sleeve gastrectomy and gastropexy. Risks and complications of the surgery were discussed with the patient in advance, particularly the possibility of , pulmonary embolism, anastomotic leak, bleeding, bowel injury, GERD, cardiac, renal or pulmonary complications. The patient understood all the risks and was in agreement with the surgical plan. Hospital Course: The patient underwent an uneventful laparoscopic sleeve gastrectomy with gastropexy on the day of admission. Postoperatively, the patient was transferred to the surgical floor. The patient received IV Acetaminophen and IV dilaudid for pain control. Patient was started on bariatric phase 1 diet POD #0. On postoperative day one, the patient was feeling well without nausea, vomiting, fevers, or tachycardia. The patient had some mild incisional pain and the abdomen was soft.? On the morning of postoperative day one, the patient was continued on 1 ounce of water or ice every half hour. During the day, the patient did fairly well, having some incisional pain, but able to ambulate adequately and to tolerate liquids well. Since the patient is doing well, we decided that the patient was ready to be discharged. The patient was given instructions to follow-up with me next week and to call my office for any fever over 101, persistent abdominal pain, nausea, vomiting, GERD, symptoms of DVT such as calf tenderness, or leg swelling, or pulmonary embolism such as chest pain or shortness of breath.? Pt was continued on her home doses of metoprolol and diltiazem. She was placed on ISS and metformin was held. Home lisinopril was also held. She received a single dose of Lasix on POD1. The patient was also instructed to drink 40-60 ounces of liquids per day using the 1-ounce cups. The patient had been given prescriptions for Tylenol for pain, Zofran prn for nausea, and pantoprazole and carafate previously. The patient was encouraged to ambulate and use the incentive spirometer. The patient was allowed to shower, but no baths, and encouraged to stay active at home. All of these instructions were given to the patient personally. All questions were answered and the patient understood all instructions, the instructions were also given to the patient in print. Time Spent with Patient Time attestation: Total time managing care of this patient today ____ minutes. Discharge coordination time: Less than 30 minutes Quality: Safe Use of Opioids Does Pt have an Active Cancer Diagnosis on the Problem List?: No Quality: Stroke Does the patient have a stroke diagnosis?: No Physical Exam Vital Signs: Vital Signs: Last Vital Signs Temp 97.5 F 05/23/22 12:04 Pulse 64 05/23/22 12:14 Resp 12 05/23/22 12:14 BP 103/53 L 05/23/22 12:14 Pulse Ox 94 05/23/22 12:14 O2 Del Method 05/23/22 12:14 O2 Flow Rate 3 05/23/22 12:14 BMI result Body Mass Index 33.3 DS: Data Data Completed and Pending Pending studies at discharge: Pending at discharge 05/23/22 10:47 Surgical [PTH] Routine Labs on day of discharge: Laboratory Results - last 24 hr 05/23/22 05/23/22 07:21 07:21 POC Glucose 113 Blood Type O Positive Antibody Screen NEGATIVE Discharge Plan Discharge Anticipated Discharge Date/Time: 05/24/22 10:41 Patient Disposition: Home, Self-Care Discharge Diagnosis: morbid obesity, HTN, DM, HLD, MERVIN, GERD, lupus Referrals: Roberto Chang MD [Primary Care Provider] - 1 Week Discharge Medications: Continued diltiazem HCl 240 mg capsule,extended release 24hr 1 cap PO DAILY sucralfate 100 mg/mL suspension PO estradiol 0.01 % (0.1 mg/gram) cream 0.1 g vaginal QWEEK (DME) blood-glucose meter [FreeStyle Lite Meter] Kit See Rx Instructions .ROUTE .MEDSUPPLY Qty: 1 Rx Instructions: As directed fluticasone furoate-vilanterol [Breo Ellipta] 200-25 mcg/dose blister with device 1 ea inhalation DAILY fluticasone propionate 50 mcg/actuation spray,suspension 50 spray intranasal DAILY PRN (Reason: Congestion) metoprolol tartrate 25 mg tablet 25 mg PO DAILY pantoprazole 40 mg tablet,delayed release (DR/EC) 40 mg PO DAILY Qty: 30 2RF ondansetron HCl 4 mg tablet 4 mg PO Q12H Qty: 20 0RF Rx Instructions: take one every 12 hours as needed if you have nausea Discontinued lisinopril 10 mg tablet 1 tab PO BEDTIME calcium carbonate-vitamin D3 600 mg-10 mcg (400 unit) tablet 1 tab PO BID nabumetone 750 mg tablet 750 mg PO BID Discharge Orders: Discharge Order (Routine); Ordered 05/24/22 Ordered By: Elsi Mix Activity on Discharge: No heavy lifting Stand Alone Forms: Patient Portal Discharge page Care Plan Goals: weight loss Health Concerns: morbid obesity Plan of Treatment: No tub baths, sex or returning to work until discussed at first post op appointment. No alcohol, tobacco or illegal drug use. Continue to use incentive spirometer hourly while awake. Walk in home for 5- 10 minutes every 2 hours during the first week. Wear abdominal binder with activity. Continue phase 1 diet and follow all meal plan instructions from your bariatric surgeon. Review bariatric handbook and call with any questions. Discharge Instructions 1. Please call your doctor or come back to the emergency room should any new symptoms arise. 2. Activity: abstain from alcohol,? limited stair climbing, no bending, no driving, no exercise, no illicit substances, no lifting, no sex, no tub bath, no work. 4. Diet: follow your bariatric surgeons recommendations for advancing diet. 5. Dressing Change/Wound Care: Your incisions are covered with waterproof dressings. You can shower with these and pat dry. Do not rub over dressings or incisions. If the area is tender, you may apply an ice pack for short intervals (no more than 20 minutes on, followed by at least 20 minutes off). Do not apply heat. Do not use creams, lotions, or topical antibiotics unless instructed to do so by your surgeon. 6. Call your doctor if: - Your temperature exceeds 101.5 F - You experience excessive pain or swelling - You have an unexpected reaction to medication - You have excessive bleeding - You experience continued vomiting/nausea - Your incision begins to separate - Your incision shows signs of infection such as increased redness, swelling, excessive pain, heat, or drainage (light blood or clear fluid is normal) General instructions: No lifting greater than 5 lbs for the next 4 weeks[address] driving within 24 hours of taking narcotic pain medications. If you do not move your bowels in the next 2 days, please take milk of magnesia over the counter. Please follow the post op diet and do not advance your diet until you are seen in the office in about 2 weeks. Please walk around your home every hour or two to prevent blood clots from forming in your legs. You do not need to wake from sleeping to walk. Please sleep in a bed or couch to prevent kinking at the hips and knees. 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 You may shower, no hot tubs, baths or swimming pools. Please call the office with any questions or concerns such as increasing abdominal pain, fever, chills, shortness of breath, chest pain, leg pain or swelling, or redness or drainage from your incisions. Please make sure you are consuming 40-60 ounces of total fluids per day. Avoid all carbonation. Do not hesitate to contact the office with any questions at . The patient's medical history has been reviewed and they are considered low risk for post op DVT and therefore DVT prophylaxis is not considered necessary. Travel after surgery was reviewed. The patient has not disclosed any travel plans during the first 30 days after surgery and they have been advised that within the first 30 days after surgery any bus, plane, train or car travel over 2 hours in duration is contraindicated due to the possibility of developing blood clots from immobility. Any travel, needs to include periods of ambulation of 10 minutes in duration every 2 hours.? The patient was instructed to discuss any plans for travel during this period with their bariatric surgeon. Assessment: s/p laparoscopic sleeve gastrectomy Discharge Date/Time: 05/24/22 11:06
[2022-05-23] MEDS: Famotidine/PF 20 MG/2 ML VIAL IVPUSH ×2 (12:39→20:38)
[2022-05-23 12:44] LABS: Hematocrit 37.4 % (37.0-47.0)
[2022-05-23 12:58] LABS: Anion Gap 15 (12-20); Blood Urea Nitrogen 11 mg/dL (9-16); Calcium 8.7 mg/dL (8.4-10.2); Carbon Dioxide 22 mmol/L (22-29); Chloride 104 mmol/L (96-108); Creatinine Clr Calc Pharmacy 74.5; Estimated Glomerular Filt Rate > 60; Glucose Random 177 mg/dL (60-115); Potassium 4.3 mmol/L (3.3-5.1); Sodium 137 mmol/L (135-145)
[2022-05-23 13:09] LABS: COVID-19 Test Negative (Negative); IDNOW Serial# BCCEAD1C
[2022-05-23 13:56] LABS: Glucose, Whole Blood 158 mg/dL (60-115)
[2022-05-23] MEDS: ondansetron HCL 4 MG/2 ML VIAL IVPUSH ×2 (14:14→22:01)
[2022-05-23] MEDS: 0.9 % Sodium Chloride Flush 3 ML SYRINGE IVFLUSH (14:15)
[2022-05-23] MEDS: Acetaminophen 1,000 MG/100 ML PIGGYBACK 16.7 MG IV ×2 (14:21→22:59)
--- NOTE | 2022-05-23 14:32 | PHA.MEDREC ---
Pharmacy Consult ? Medication Reconciliation Pharmacy has reviewed the medication reconciliation completed by nursing. Patient reports she no longer take atorvastatin due to muscle cramps. Also confirmed patient no longer take hydroxychloroquine and metformin even thought they are being filled. Clarisa Gutierrez, PharmD
[2022-05-23] MEDS: Metoclopramide HCl 10 MG/2 ML VIAL IVPUSH (15:55)
[2022-05-23 18:41] LABS: Glucose, Whole Blood 156 mg/dL (60-115)
[2022-05-23] MEDS: Insulin Lispro 100 UNIT/ML 3 ML VIAL SUBCUT (18:51)
[2022-05-23] MEDS: Eye Irrigation Solution 118 ML IRRIG.SOLN 1 APPL EYE-BOTH (20:34)
[2022-05-23 20:40] LABS: Glucose, Whole Blood 152 mg/dL (60-115)
[2022-05-24] VITALS: BP 144/78; RESP 18; TEMP 36.9; O2SAT 99
[2022-05-24 00:38] LABS: Glucose, Whole Blood 145 mg/dL (60-115)
[2022-05-24 03:07] VITALS: BP 173/81; PULSE 94; RESP 18; TEMP 36.7; O2SAT 95
[2022-05-24] MEDS: Acetaminophen 1,000 MG/100 ML PIGGYBACK 16.7 MG IV (04:52)
[2022-05-24] MEDS: Lactated Ringers 1,000 ML 100 ML IVCONT (04:53)
[2022-05-24] MEDS: ondansetron HCL 4 MG/2 ML VIAL IVPUSH (05:30)
[2022-05-24 05:38] VITALS: BP 149/76; PULSE 94; RESP 18; O2SAT 98
[2022-05-24 06:01] LABS: Glucose, Whole Blood 137 mg/dL (60-115)
[2022-05-24 07:21] LABS: Basophils Percent Auto 0.1 % (0-2); Hematocrit 39.4 % (37.0-47.0); Hemoglobin 12.9 g/dl (12.0-16.0); Imm Gran Abs Auto 0.03 X10*3/uL (0.00-0.03); Imm Gran Pct Auto 0.4 % (0.0-0.4); Lymphocytes Absolute Auto 0.9 X10*3/uL (1.2-4.9); Lymphocytes Percent Auto 12.9 % (20-40); MANUAL DIFF FLAG NO; Mean Corpuscular HGB Conc 32.7 g/dl (31.0-35.0); Mean Corpuscular Hemoglobin 27.8 pg (27.0-33.0); Mean Corpuscular Volume 84.9 fL (80.0-98.0); Mean Platelet Volume 9.2 fL (9.4-12.3); Monocytes Absolute Auto 0.2 X10*3/uL (0.1-1.2); Monocytes Percent Auto 2.8 % (2-11); Neutrophils Absolute Auto 5.6 x10*3/uL (2.0-8.3); Neutrophils Percent Auto 83.8 % (45-73); Platelet Count 332 X10*3/uL (160-400); Red Blood Count 4.64 X10*6/uL (4.20-5.50); Red Cell Distribution Width 15.9 % (11.0-16.0); White Blood Count 6.7 X10*3/uL (4.8-10.8)
[2022-05-24 07:33] LABS: Anion Gap 15 (12-20); Blood Urea Nitrogen 9 mg/dL (9-16); Calcium 9.1 mg/dL (8.4-10.2); Carbon Dioxide 24 mmol/L (22-29); Chloride 104 mmol/L (96-108); Creatinine Clr Calc Pharmacy 88.4; Estimated Glomerular Filt Rate > 60; Glucose Random 132 mg/dL (60-115); Potassium 4.3 mmol/L (3.3-5.1); Sodium 139 mmol/L (135-145)
[2022-05-24 07:53] VITALS: BP 144/77; PULSE 94; RESP 16; TEMP 36.9; O2SAT 96
[2022-05-24 08:04] LABS: Glucose, Whole Blood 138 mg/dL (60-115)
--- NOTE | 2022-05-24 08:51 | PM.PNGS ---
Subjective Subjective Date of Service: 05/24/22 Interval history: POD #1 s/p LSG. Sleep well yesterday. No nausea or abd pain. Ambulating and voiding without difficulty. Pt states she has mid chest pressure without any associated symptoms. She states she went to ED with this complaint last week and was cleared she does have follow up with cardiology in two weeks. Using ICS well, no cough. Tolerating phase 1 bariatric diet this am. Physical Exam Vital Signs: Vital Signs: Last Vital Signs Temp 98.4 F 05/24/22 07:53 Pulse 94 05/24/22 07:53 Resp 16 05/24/22 07:53 BP 144/77 H 05/24/22 07:53 Pulse Ox 96 05/24/22 07:53 O2 Del Method 05/24/22 07:53 O2 Flow Rate 3 05/23/22 15:36 BMI result Body Mass Index 33.3 Const: General: cooperative, healthy appearing, comfortable and no acute distress Resp: Other: ICS to top easily without cough. GI: Inspection: Yes incision (all dressings c/d/i) Palpation (GI): Soft to palpation, nontender, no guarding and no masses Extrem: General: No no pedal edema and No no calf tenderness Objective Data Active Medications Albuterol Sulfate (Albuterol Sulfate (0.083%) 2.5 Mg/3 Ml Vial.Neb) 2.5 mg INHALE ONCE PRN PRN Reason: Shortness of Breath/Wheezing Artificial Tears (Artificial Tears 15 Ml Drops) 2 drop EYE-LEFT Q4H PRN PRN Reason: Dry Eyes Dextrose (Dextrose 50 % 25 Gm/50 Ml Syringe) 25 gm IVPUSH Q15M PRN; Protocol PRN Reason: per Hypoglycemia Standing Ord. Diltiazem HCl (Diltiazem Hcl Cd 240 Mg Cap.Er.Deg) 240 mg PO DAILY [facility]; Protocol Famotidine (Famotidine/Pf 20 Mg/2 Ml Vial) 20 mg IVPUSH BID [facility] Last Admin: 05/23/22 20:38 Dose: 20 mg Documented By: THIEN Fluticasone/Vilanterol (Fluticasone/Vilanterol 200/25 Blst.W.Dev) 1 puff INHALE RDAILY [facility] Last Admin: 05/24/22 08:03 Dose: Not Given Documented By: HO.[email or web address] Non-Admin Reason: pt unavail Glucose (Glucose Gel 15 Gm Gel..Gram.) 15 gm PO Q15M PRN; Protocol PRN Reason: per Hypoglycemia Standing Ord. Hydromorphone HCl (Hydromorphone Hcl 0.5 Mg/0.5 Ml Syringe) 0.25 mg IVPUSH Q4H PRN; Protocol PRN Reason: Pain, Moderate (Pain Scale 4-6 Lactated Ringer's (Lr) 1,000 mls @ 100 mls/hr IVCONT .Q10H [facility] Last Admin: 05/24/22 04:53 Dose: 100 mls/hr Documented By: THIEN Acetaminophen (Ofirmev) 1,000 mg in 100 mls @ 16.7 mls/hr IV .Q6H [facility] Last Admin: 05/24/22 04:52 Dose: 16.7 mls/hr Documented By: THIEN Insulin Human Lispro (Insulin Lispro 100 Unit/Ml 3 Ml Vial) 0 unit SUBCUT Q6H [facility]; Protocol Stop: 05/24/22 17:59 Last Admin: 05/24/22 05:59 Dose: Not Given Documented By: THIEN Non-Admin Reason: No Insulin Coverage Comments: [id number] Metoclopramide HCl (Metoclopramide Hcl 10 Mg/2 Ml Vial) 10 mg IVPUSH Q6H PRN PRN Reason: Nausea Last Admin: 05/23/22 15:55 Dose: 10 mg Documented By: CONNIE Metoprolol Tartrate (Metoprolol Tartrate 25 Mg Tablet) 25 mg PO DAILY [facility]; Protocol Ondansetron HCl (Ondansetron Hcl 4 Mg/2 Ml Vial) 4 mg IVPUSH Q8H [facility] Last Admin: 05/24/22 05:30 Dose: 4 mg Documented By: THIEN Sodium Chloride (0.9 % Sodium Chloride Flush 3 Ml Syringe) 3 ml IVFLUSH QSHIFT [facility] Last Admin: 05/24/22 07:00 Dose: Not Given Documented By: NICOLÁS Non-Admin Reason: IV Running Labs 05/24/22 06:12 05/24/22 06:12 Labs: Laboratory Results - last 24 hr 05/23/22 05/23/22 05/23/22 12:35 12:35 13:51 MCV MCH MCHC RDW Plt Count MPV Immature Gran % (Auto) Neut % (Auto) Lymph % (Auto) Sandoval % (Auto) Eos % (Auto) Baso % (Auto) Lymph # (Auto) Sandoval # (Auto) Eos # (Auto) Baso # (Auto) Abs Immat Gran (auto) Absolute Neuts (auto) Absolute Nucleated RBC Nucleated RBC % (auto) Anion Gap 15 Estim Creat Clear Calc 74.5 Estimated GFR > 60 POC Glucose 158 H Random Glucose 177 H Calcium 8.7 D COVID-19 (COLIN) Negative COVID-doggyloot Com See Note 05/23/22 05/23/22 05/24/22 18:37 20:30 00:34 MCV MCH MCHC RDW Plt Count MPV Immature Gran % (Auto) Neut % (Auto) Lymph % (Auto) Sandoval % (Auto) Eos % (Auto) Baso % (Auto) Lymph # (Auto) Sandoval # (Auto) Eos # (Auto) Baso # (Auto) Abs Immat Gran (auto) Absolute Neuts (auto) Absolute Nucleated RBC Nucleated RBC % (auto) Anion Gap Estim Creat Clear Calc Estimated GFR POC Glucose 156 H 152 H 145 H Random Glucose Calcium COVID-19 (COLIN) COVID-Hightower 05/24/22 05/24/22 05/24/22 05:57 06:12 06:12 MCV 84.9 MCH 27.8 MCHC 32.7 RDW 15.9 Plt Count 332 MPV 9.2 L Immature Gran % (Auto) 0.4 Neut % (Auto) 83.8 H Lymph % (Auto) 12.9 L Sandoval % (Auto) 2.8 Eos % (Auto) 0.0 Baso % (Auto) 0.1 Lymph # (Auto) 0.9 L Sandoval # (Auto) 0.2 Eos # (Auto) 0.0 Baso # (Auto) 0.0 Abs Immat Gran (auto) 0.03 Absolute Neuts (auto) 5.6 Absolute Nucleated RBC 0.000 Nucleated RBC % (auto) 0.0 Anion Gap 15 Estim Creat Clear Calc 88.4 Estimated GFR > 60 POC Glucose 137 H Random Glucose 132 H Calcium 9.1 COVID-19 (COLIN) COVID-Hightower 05/24/22 07:58 MCV MCH MCHC RDW Plt Count MPV Immature Gran % (Auto) Neut % (Auto) Lymph % (Auto) Sandoval % (Auto) Eos % (Auto) Baso % (Auto) Lymph # (Auto) Sandoval # (Auto) Eos # (Auto) Baso # (Auto) Abs Immat Gran (auto) Absolute Neuts (auto) Absolute Nucleated RBC Nucleated RBC % (auto) Anion Gap Estim Creat Clear Calc Estimated GFR POC Glucose 138 H Random Glucose Calcium COVID-19 (COLIN) COVID-19 Clin Com Procedures Date of Service Date of Service: 05/24/22 Progress Note: A&P Assessment and plan (1) S/P laparoscopic sleeve gastrectomy: Status: Acute Assessment and Plan: POD #1 LSG, stable. Pt will continue phase 1 bariatric diet today and will be discharged home. She will take her BP later today and contact Dr Barfield with results. She will receive furosemide x 1 this am before discharge per Dr Quevedo. She will follow all post op instructions and has follow up scheduled in office in 1 week. Chest pressure is not considered to be cardiac in nature, and this is a pre surgical condition. Patient states she is not concerned about it. Case discussed with Dr Quevedo this am. (2) Hypertension: Status: Acute Assessment and Plan: Continue metoprolol and diltiaze. Furosemdi x 1 this am. Will monitor closely (3) Non-insulin dependent type 2 diabetes mellitus: Status: Acute Assessment and Plan: Will monitor at home, no metformin for now. (4) Sleep apnea with use of continuous positive airway pressure (CPAP): Status: Acute Assessment and Plan: Use nightly Time Spent With Patient Time: Total time managing care of this patient today 30 minutes. Quality Stroke Does the patient have a stroke diagnosis?: No VTE Prior VTE?: No VTE Risk Level:: Surgical - low VTE Device Contraindication: Treatment Not Indicated VTE Drug Contraindication: Treatment Not Indicated
[2022-05-24] MEDS: Famotidine/PF 20 MG/2 ML VIAL IVPUSH (09:07)
[2022-05-24] MEDS: Furosemide 20 MG TABLET PO (09:08)
[2022-05-24] MEDS: dilTIAZem HCL CD 240 MG CAP.ER.DEG PO (09:08)
[2022-05-24] MEDS: Metoprolol Tartrate 25 MG TABLET PO (09:08)
--- NOTE | 2022-05-24 09:35 | MHC.CM.PN ---
order for home, self-care, CM acknowledge. D/C to home order with self-care prior to CM interview opportunity.
--- NOTE | 2022-05-24 13:38 | HO.POSTANES ---
Post Anesthesia Evaluation Post Anesthesia Evaluation Vital Signs: Vital Signs Temp Pulse Resp BP Pulse Ox O2 Del Method 05/24/22 07:53 98.4 F 94 16 144/77 H 96 Room Air 05/24/22 05:38 94 18 149/76 H 98 Room Air 05/24/22 03:07 98.0 F 94 18 173/81 H 95 CPAP Anesthesia: General Endotracheal-GETA Mental Status: Awake Pain Control: Satisfactory Nausea/Vomiting: None Hydration: Adequate Anesthesia-Related Issues: No Anes. Related Issues
== END 2022-05-24 11:06 | disposition home or self-care (01) | DRG 620 ==
LOC: HO.SSSA 12:24 → HO.S3 12:26
PROVIDERS: Physician Assistant Surgical; Admitting Provider Surgery; PCP Internal Medicine; Visit Provider Surgery
PROC: 0DB64Z3 Excision of Stomach, Percutaneous Endoscopic Approach, Vertical (ICD-10-PCS; CPT 43845; principal; 2022-05-23 09:00)
DX: E66.01 Morbid (severe) obesity due to excess calories (principal); Q43.3 Congenital malformations of intestinal fixation; E78.00 Pure hypercholesterolemia, unspecified; M32.9 Systemic lupus erythematosus, unspecified; K21.9 Gastro-esophageal reflux disease without esophagitis; E11.9 Type 2 diabetes mellitus without complications; K44.9 Diaphragmatic hernia without obstruction or gangrene; I10 Essential (primary) hypertension; G47.33 Obstructive sleep apnea (adult) (pediatric); K74.00 Hepatic fibrosis, unspecified; Z20.822 Contact with and (suspected) exposure to COVID-19; Z68.35 Body mass index [BMI] 35.0-35.9, adult; Z86.16 Personal history of COVID-19; Z98.1 Arthrodesis status; Z91.040 Latex allergy status; Z88.5 Allergy status to narcotic agent; Z79.51 Long term (current) use of inhaled steroids; Z79.899 Other long term (current) drug therapy
CPT/HCPCS: 36415; 80048; 82947; 85014; 85018; 85025; 86850; 86900; 86901; 87635; 88307; 88342; A4649; C9088; J0131; J0690; J1100; J1170; J2250; J2405; J2765; J2795; J3010

== ENCOUNTER → 2022-05-30 09:11 | Outpatient (BNVA) | payer OTHER, SELFPAY | PROVIDERS: PCP Internal Medicine; Visit Provider Physician Assistant Surgical | DX: Z13.89 Encounter for screening for other disorder (principal) ==

== ENCOUNTER → 2022-06-10 10:11 | Outpatient (BNVA) | payer OTHER, SELFPAY | PROVIDERS: PCP Internal Medicine; Visit Provider Physician Assistant Surgical | DX: E66.9 Obesity, unspecified (principal); Z68.30 Body mass index [BMI] 30.0-30.9, adult; Z98.84 Bariatric surgery status | CPT/HCPCS: 99212 ==

== ENCOUNTER → 2022-06-23 08:57 | Outpatient (BNVA) | payer OTHER, SELFPAY | PROVIDERS: PCP Internal Medicine; Visit Provider Physician Assistant Surgical | DX: E66.3 Overweight (principal); Z98.84 Bariatric surgery status; Z68.29 Body mass index [BMI] 29.0-29.9, adult | CPT/HCPCS: 99212 ==

== ENCOUNTER 2022-06-23 10:34 | Outpatient (REF) | payer OTHER, SELFPAY ==
[2022-05-01 09:22] LABS: MANUAL DIFF FLAG NO
[2022-05-01 09:37] LABS: Basophils Percent Auto 0.7 % (0-2); Eosinophils Absolute Auto 0.1 X10*3/uL (0.0-0.4); Eosinophils Percent Auto 1.9 % (0-4); Hematocrit 44.7 % (37.0-47.0); Hemoglobin 14.3 g/dl (12.0-16.0); Imm Gran Abs Auto 0.01 X10*3/uL (0.00-0.03); Imm Gran Pct Auto 0.2 % (0.0-0.4); Lymphocytes Absolute Auto 1.8 X10*3/uL (1.2-4.9); Lymphocytes Percent Auto 42.6 % (20-40); Mean Corpuscular Hemoglobin 27.7 pg (27.0-33.0); Mean Corpuscular Volume 86.5 fL (80.0-98.0); Mean Platelet Volume 9.1 fL (9.4-12.3); Monocytes Absolute Auto 0.3 X10*3/uL (0.1-1.2); Monocytes Percent Auto 7.8 % (2-11); Neutrophils Absolute Auto 1.9 x10*3/uL (2.0-8.3); Neutrophils Percent Auto 46.8 % (45-73); Platelet Count 266 X10*3/uL (160-400); Red Blood Count 5.17 X10*6/uL (4.20-5.50); Red Cell Distribution Width 14.9 % (11.0-16.0); White Blood Count 4.1 X10*3/uL (4.8-10.8)
[2022-05-01 09:42] LABS: Prothrombin Time 11.5 SEC (10.0-13.1)
[2022-05-01 10:26] LABS: Estimated Average Glucose 134 mg/dL; Hemoglobin A1c % 6.3 %
[2022-05-01 10:47] LABS: Alanine Aminotransferase 31 U/L (0-31); Albumin Level 4.1 g/dL (3.5-5.0); Alkaline Phosphatase 89 U/L (39-117); Anion Gap 13 (12-20); Aspartate Amino Transferase 18 U/L (5-31); Bilirubin Total 0.6 mg/dL (0.0-1.0); Blood Urea Nitrogen 22 mg/dL (9-16); C Reactive Protein 0.47 mg/dL (< or = 0.50); Calcium 9.6 mg/dL (8.4-10.2); Carbon Dioxide 29 mmol/L (22-29); Chloride 103 mmol/L (96-108); Cholesterol 179 mg/dL; Estimated Glomerular Filt Rate > 60; Glucose Random 119 mg/dL (60-115); HDL Cholesterol 56 mg/dL; LDL Cholesterol Calculated 110 mg/dl; Potassium 4.3 mmol/L (3.3-5.1); Sodium 141 mmol/L (135-145); Total Protein 7.6 g/dL (6.5-8.0); Triglycerides 69 mg/dL
[2022-05-01 11:07] LABS: Insulin 14 uU/mL (2-29); TSH reflex Free T4 0.92 uIU/mL (0.32-4.0)
[2022-05-02 09:09] VITALS: BMI 34.0
--- NOTE | 2022-05-02 23:42 | MHC.SHP ---
Pre-Procedural Eval Section A Date of Service: 05/02/22 The patient is an INPATIENT: Yes The History & Physical has been completed within 30 days and I have reviewed it.: Yes Section B Chief Complaint: Obesity, unspecified Relevant Family History (Specify if Yes): No Relevant Social History: None Present Medications: None Medical History: No relevant PMH History of Previous Operations: No relevant previous surgery Allergies: Allergies Allergy/AdvReac Type Severity Reaction Status Date / Time latex Allergy Severe Hives Verified 05/01/22 16:30 codeine AdvReac Gastrointestinal Verified 05/01/22 16:34 Upset Review of Systems Sugical H&P ROS: Negative: Constitution, Cardiovascular, Respiratory, Neurological, Psychiatric, Hem-Onc, Allergic/Immunologic, Gastrointestinal, Genitourinary, Musculoskeletal, Integumentary, Endocrine and Eyes/Ears/Nose/Throat Exam Surgical H&P Exam: Normal: HEENT, Normal: Heart, Normal: Lungs, Normal: Extremities, Normal: Abdomen, Normal: Skin and Normal: Neurological Plan Diagnosis/Plan: Unchanged I have reviewed the history and physical and performed a pertinent physical examination on my patient. No changes have occurred unless specified. Time Spent With Patient Time: Total time managing care of this patient today ____ minutes.
--- NOTE | 2022-05-05 10:47 | HO.ANESPROP2 ---
HPI - Anesthesia Eval Consult details Narrative: 62yo F for Gastrectomy Sleeve,Possible diaphragmatic hernia,Possible ventral hernia,Possible open PMFSH Active Problems Active Problems: All Active Problems (Updated 04/14/22 @ 08:10 by Mark Quevedo MD) BMI 33.0-33.9,adult (Acute) Vitamin B12 deficiency (Acute) Vitamin B1 deficiency (Acute) Obesity (Acute) BMI 35.0-35.9,adult (Acute) Hypertension (Acute) Non-insulin dependent type 2 diabetes mellitus (Acute) Hyperlipidemia (Acute) Sleep apnea with use of continuous positive airway pressure (CPAP) (Acute) GERD (gastroesophageal reflux disease) (Acute) DJD (degenerative joint disease) (Acute) COPD (chronic obstructive pulmonary disease) (Acute) Lupus (systemic lupus erythematosus) (Acute) History of cholecystectomy (Acute) Major depressive disorder, recurrent, in remission, unspecified (Acute) Past Medical History Medical History (Updated 04/14/22 @ 08:10 by Mark Quevedo MD) Asthma Diabetes Elevated cholesterol GERD (gastroesophageal reflux disease) HTN (hypertension) Lupus Family History Family history of problems with anesthesia: No Surgical History Surgical History History of back surgery History of History of esophagogastroduodenoscopy (EGD) History of partial hysterectomy Hx of cholecystectomy Hx of colonoscopy History of Problems with Anesthesia: No Social History Social History (Updated 05/02/22 @ 09:12 by Evelyn Barber RN) Are you a primary resident care spec to a significant other at home: No Do you presently have visiting nurse or other home services: No Patient Tobacco Use Status: Former Tobacco user Quit Date: 2020 Use of substances other than those prescribed or required for medical reasons: No Meds Allergies Allergy/AdvReac Type Severity Reaction Status Date / Time latex Allergy Severe Hives Verified 05/01/22 16:30 codeine AdvReac Gastrointestinal Verified 05/01/22 16:34 Upset Home Medications Medication Instructions Recorded Confirmed Last Taken Type atorvastatin 20 mg tablet 20 mg PO DAILY 01/02/22 04/25/22 Unknown History blood-glucose meter (FreeStyle #1 ea 01/02/22 04/25/22 Unknown History Lite Meter kit) calcium carbonate 600 mg-vitamin 1 tab PO BID 01/02/22 05/02/22 Unknown History D3 10 mcg (400 unit) tablet diltiazem HCl 300 mg capsule,24 300 mg PO DAILY 01/02/22 04/25/22 Unknown History hr,extended release (Tiadylt ER) estradiol 0.01% (0.1 mg/gram) 0.1 g vaginal QWEEK 01/02/22 04/25/22 Unknown History vaginal cream fluticasone furoate 200 1 ea inhalation DAILY 01/02/22 05/02/22 Unknown History mcg-vilanterol 25 mcg/dose inhalation powder (Breo Ellipta) fluticasone propionate 50 50 spray intranasal PRN Congestion 01/02/22 04/25/22 Unknown History mcg/actuation nasal spray,suspension furosemide 20 mg tablet 20 mg PO DAILY PRN Edema 01/02/22 04/25/22 Unknown History lisinopril 5 mg tablet 10 mg PO DAILY 01/02/22 05/02/22 Unknown History metoprolol tartrate 25 mg tablet 25 mg PO DAILY 01/02/22 05/02/22 Unknown History nabumetone 750 mg tablet 750 mg PO BID 01/02/22 04/25/22 Unknown History ondansetron HCl 4 mg tablet 4 mg PO Q8H PRN Nausea 01/02/22 05/02/22 Unknown History pantoprazole 40 mg tablet,delayed 40 mg PO BID 01/02/22 04/25/22 Unknown History release Exam Exam Date and Time: May 05, 2022 1047 Height,Weight and Vital Signs: Height 5 ft 3 in Weight 87.09 kg Pertinent Lab Results Pertinent Lab Results: Laboratory Tests 05/01/22 05/01/22 05/01/22 09:17 09:17 09:17 WBC 4.1 L RBC 5.17 Hgb 14.3 Hct 44.7 MCV 86.5 MCH 27.7 MCHC 32.0 RDW 14.9 Plt Count 266 MPV 9.1 L Immature Gran % (Auto) 0.2 Neut % (Auto) 46.8 Lymph % (Auto) 42.6 H [place] % (Auto) 7.8 Eos % (Auto) 1.9 Baso % (Auto) 0.7 Lymph # (Auto) 1.8 [place] # (Auto) 0.3 Eos # (Auto) 0.1 Baso # (Auto) 0.0 Abs Immat Gran (auto) 0.01 Absolute Neuts (auto) 1.9 L Absolute Nucleated RBC 0.000 Nucleated RBC % (auto) 0.0 PT 11.5 INR 1.0 APTT 28.0 Sodium 141 Potassium 4.3 Chloride 103 Carbon Dioxide 29 Anion Gap 13 BUN 22 H Creatinine 0.80 Estim Creat Clear Calc TNP Estimated GFR > 60 Random Glucose 119 H Estimat Average Glucose Hemoglobin A1c % Insulin Level 14 Calcium 9.6 Total Bilirubin 0.6 AST 18 ALT 31 Alkaline Phosphatase 89 C-Reactive Protein 0.47 Total Protein 7.6 Albumin 4.1 Triglycerides 69 Cholesterol 179 LDL Cholesterol, Calc 110 HDL Cholesterol 56 TSH 0.92 Blood Type Antibody Screen 05/01/22 05/01/22 09:17 09:17 WBC RBC Hgb Hct MCV MCH MCHC RDW Plt Count MPV Immature Gran % (Auto) Neut % (Auto) Lymph % (Auto) [place] % (Auto) Eos % (Auto) Baso % (Auto) Lymph # (Auto) [place] # (Auto) Eos # (Auto) Baso # (Auto) Abs Immat Gran (auto) Absolute Neuts (auto) Absolute Nucleated RBC Nucleated RBC % (auto) PT INR APTT Sodium Potassium Chloride Carbon Dioxide Anion Gap BUN Creatinine Estim Creat Clear Calc Estimated GFR Random Glucose Estimat Average Glucose 134 Hemoglobin A1c % 6.3 Insulin Level Calcium Total Bilirubin AST ALT Alkaline Phosphatase C-Reactive Protein Total Protein Albumin Triglycerides Cholesterol LDL Cholesterol, Calc HDL Cholesterol TSH Blood Type O Positive Antibody Screen NEGATIVE Narrative Narrative: EKG 01/2022 Vent. Rate : 073 BPM ? ? Atrial Rate : 073 BPM ?? P-R Int : 172 ms? QRS Dur : 090 ms ? ? QT Int : 392 ms ? ? ? P-R-T Axes : 065 034 040 degrees ?? QTc Int : 431 ms ? Normal sinus rhythm with sinus arrhythmia Normal ECG No previous ECGs available Assessment and Plan Assessment Anesthesia Assessment: Chart Reviewed Final Anesthetic Review Family History of Problems with Anesthesia: No History of Problems with Anesthesia: No
[2022-05-05 14:24] LABS: COVID-19 Test Positive (Negative); IDNOW Serial# BCCEAD1C
--- NOTE | 2022-05-05 14:46 | PC.NURSE ---
Received call from [facility] regarding patient Positive COVID result. Bariatrics personnel scheduler, Mirna, notified Via [place] text. Mirna informed Dr Quevedo of results, per their office case cancelled.
== END 2022-06-23 10:35 | disposition home or self-care (01) ==
LOC: HO.PAT 10:34
PROVIDERS: Physician Assistant Surgical; PCP Internal Medicine; Visit Provider Surgery
DX: Z01.818 Encounter for other preprocedural examination (principal); Z20.822 Contact with and (suspected) exposure to COVID-19; E66.9 Obesity, unspecified; Z68.33 Body mass index [BMI] 33.0-33.9, adult
CPT/HCPCS: 36415; 80053; 80061; 83036; 83525; 84443; 85025; 85610; 85730; 86140; 86850; 86900; 86901; 87635

== ENCOUNTER → 2022-07-28 09:16 | Outpatient (BNVA) | payer OTHER, SELFPAY | PROVIDERS: PCP Internal Medicine; Visit Provider Physician Assistant Surgical | DX: E66.3 Overweight (principal); Z68.29 Body mass index [BMI] 29.0-29.9, adult | CPT/HCPCS: 99212 ==

== ENCOUNTER → 2022-09-05 10:18 | Outpatient (BNVA) | payer OTHER, SELFPAY | PROVIDERS: PCP Internal Medicine; Visit Provider Physician Assistant Surgical | DX: E66.3 Overweight (principal); L98.7 Excessive and redundant skin and subcutaneous tissue; Z98.84 Bariatric surgery status; Z68.28 Body mass index [BMI] 28.0-28.9, adult | CPT/HCPCS: 99212 ==

== ENCOUNTER 2022-11-26 13:22 | Outpatient (AMB) | payer OTHER, SELFPAY ==
--- NOTE | 2022-11-26 13:27 | MHC.OFFVISWM ---
Intake VS Expanded 11/26/22 13:31 Height 5 ft 4 in Weight 166 lb 3.2 oz BMI 28.5 BP 108/60 Blood Pressure Location Rt brachial Blood Pressure Position Sitting Pulse 52 Pulse Source Pulse Oximeter Temp 96.9 F Temperature Source Temporal Artery Scan Pulse Oximetry 97 Oxygen Delivery Method Room Air Body Fat 61.2 Body Fat Percentage 36.9 Free Fat Mass 104.8 Muscle Mass 99.4 Visceral Mass 9.0 Water Mass 74.0 BMR 1,425 Intake Visit Reasons: (OV) PO LSG 05/29/22 Allergies latex Allergy (Severe, Verified 11/26/22 13:29) Anaphylaxis codeine Adverse Reaction (Intermediate, Verified 11/26/22 13:29) Gastrointestinal Upset Medication List - Last Reconciled 11/26/22 by DAYNA Rosenbaum atorvastatin 20 mg PO DAILY blood-glucose meter (FreeStyle Lite Meter kit) As directed clotrimazole 1% 1 appl topical BID diltiazem HCl 1 cap PO DAILY fluticasone furoate-vilanterol 200-25 mcg/dose (Breo Ellipta) 1 ea inhalation DAILY metoprolol tartrate 25 mg PO DAILY pantoprazole 40 mg PO DAILY HPI HPI Comments History of Present Illness Details This?is a?62?yo female who is s/p LSG 05/29/2022. Presents for 6 month post op visit. Weight at last visit on 09/05/2022 was 167 pounds with a BMI of 28.5, weight today is 166.2 pounds, representing a 0.8 pound weight loss.? No complaints of nausea, emesis, abdominal pain or reflux, or constipation. Present meal plan includes: 8-10am Orgain shake, 2 scoops 11:30-1:30pm same shake 3-5pm same shake 6pm one ounce soft protein (fish or chicken) and 1 oz veg has tried mashed potatoes takes MVI, Ca/D, biotin Pt reports she sometimes does not eat until noontime, going through a divorce which is stressful. Knows she is likely low in protein. Exercise routine includes: walking outside with puppy almost every day- 3-4 miles has not restarted hydrochloroquine yet; still has some pain from lupus Pt reports issues of excess skin of upper arms and abdomen. Regarding abdomen, pt reports rashes in skin fold which are much worse after walking her dog. Has to shower several times a day and it is difficult to clean as the excess skin makes the area difficult to reach. She notices an unpleasant odor when sweat collects in the skin fold which is much worse in summertime with hotter weather. Regarding upper arms, pt reports chafing/rashes when excess skin rubs against torso. Arms feel very heavy and uncomfortable due to excess skin, making exercise more difficult. Has to wear long sleeve shirts even in summer to prevent chafing and irritation, which is not sustainable for her in the summer and hot weather.??? Did the patient ever have any of these conditions and are they resolved or still being treated? GERD: pantoprazole MERVNI:? no longer uses CPAP DM:?borderline; resolved HTN:? diltiazem, metoprolol Hyperlipidemia:?atorvastatin Post op complications:? none Heartburn symptoms? controlled by PPI Score 0-5: 0=no symptoms, 1=noticeable but not bothersome (slight or occasional), 2=noticeable, bothersome but not daily, 3=bothersome and daily, 4=affects daily activities, 5=incapacitating, unable to do daily activities How bad is the heartburn: 0 Heartburn when lying down: 0 Heartburn when standing up: 0 Heartburn after meals: 0 Does heartburn change your diet: 5 Does heartburn wake you up from sleep: 0 Do you have difficulty swallowin Do you have pain with swallowin If you take medication for reflux, does this affect your daily life: 0 Total score: 5 [facility] Medical History (Updated 09/05/22 @ 10:52 by DAYNA Rosenbaum) Asthma Diabetes Elevated cholesterol GERD (gastroesophageal reflux disease) History of COVID-19 HTN (hypertension) Lupus Surgical History History of back surgery History of History of esophagogastroduodenoscopy (EGD) History of partial hysterectomy Hx of cholecystectomy Hx of colonoscopy S/P laparoscopic sleeve gastrectomy Social History Household Members: Unknown / Unable to assess Housing: House Are you a primary client care manager to a significant other at home: No Do you presently have visiting nurse or other home services: No Patient Tobacco Use Status: Former Tobacco user Quit Date: 2019 Tobacco use type: Cigarette Physical Exam Vital Signs: Last Vital Signs Temp 96.9 F 11/26/22 13:31 Pulse 52 11/26/22 13:31 BP 108/60 11/26/22 13:31 Pulse Ox 97 11/26/22 13:31 Oxygen Delivery Method Room Air 11/26/22 13:31 BMI result Body Mass Index 28.5 Const General: cooperative, comfortable and no acute distress Orientation/consciousness: patient oriented x3 GI Other: soft, nontender, nondistended, incisions well healed, no hernia, no masses Grade II pannus, scattered boils present along lower abdominal skin fold Neuro General: patient oriented x3 Assessment & Plan Assessment & Plan (1) Overweight: Code(s): E66.3 - Overweight (2) Excess skin: Code(s): L98.7 - Excessive and redundant skin and subcutaneous tissue (3) S/P laparoscopic sleeve gastrectomy: Comment: 05/23/22 Mark Quevedo MD Code(s): Z98.84 - Bariatric surgery status Plan Discussed new meal plan to ensure adequate protein, avoid skipping meals, avoid nuts in yogurt. Breakfast- 1 egg Lunch- Orgain shake with 2 scoops in 8oz UAM Dinner (3pm)- 3oz protein/meat, 3oz veg/salad Snack around 6pm- jamaican yogurt, can add fruit Labs ordered. Continue clotrimazole for issues of excess skin. RTC [address] to discuss expansion of meal plan. Patient is overweight and with issues of excess skin and is not considered stable at this time. I spent a total of 30 minutes reviewing/updating records, examining the patient and counseling the patient on weight management as detailed above. Orders: Orders Vitamin B12 and Folate Today E66.3 - Overweight, L98.7 - Excessive and redundant skin and subcutaneous tissue, Z98.84 - Bariatric surgery status Comprehensive Met. Panel Today E66.3 - Overweight, L98.7 - Excessive and redundant skin and subcutaneous tissue, Z98.84 - Bariatric surgery status C Reactive Protein Today E66.3 - Overweight, L98.7 - Excessive and redundant skin and subcutaneous tissue, Z98.84 - Bariatric surgery status Ferritin Today E66.3 - Overweight, L98.7 - Excessive and redundant skin and subcutaneous tissue, Z98.84 - Bariatric surgery status Hemoglobin A1c Today E66.3 - Overweight, L98.7 - Excessive and redundant skin and subcutaneous tissue, Z98.84 - Bariatric surgery status Insulin Today E66.3 - Overweight, L98.7 - Excessive and redundant skin and subcutaneous tissue, Z98.84 - Bariatric surgery status IRON PROFILE Today E66.3 - Overweight, L98.7 - Excessive and redundant skin and subcutaneous tissue, Z98.84 - Bariatric surgery status Lipid Panel Today E66.3 - Overweight, L98.7 - Excessive and redundant skin and subcutaneous tissue, Z98.84 - Bariatric surgery status PTHI Today E66.3 - Overweight, L98.7 - Excessive and redundant skin and subcutaneous tissue, Z98.84 - Bariatric surgery status TSH reflex Free T4 Today E66.3 - Overweight, L98.7 - Excessive and redundant skin and subcutaneous tissue, Z98.84 - Bariatric surgery status Vitamin A Today E66.3 - Overweight, L98.7 - Excessive and redundant skin and subcutaneous tissue, Z98.84 - Bariatric surgery status Vitamin B1 Today E66.3 - Overweight, L98.7 - Excessive and redundant skin and subcutaneous tissue, Z98.84 - Bariatric surgery status Vitamin D 25-OH Total Today E66.3 - Overweight, L98.7 - Excessive and redundant skin and subcutaneous tissue, Z98.84 - Bariatric surgery status Zinc Today E66.3 - Overweight, L98.7 - Excessive and redundant skin and subcutaneous tissue, Z98.84 - Bariatric surgery status Complete Blood Count Auto Diff Today E66.3 - Overweight, L98.7 - Excessive and redundant skin and subcutaneous tissue, Z98.84 - Bariatric surgery status Coding Level of Care Code Est Pt Level 4 (26048) Diagnoses Overweight E66.3 Excess skin L98.7 S/P laparoscopic sleeve gastrectomy Z98.84
[2022-11-26 13:31] VITALS: BP 108/60; PULSE 52; TEMP 36.1; O2SAT 97; BMI 28.5
== END 2022-11-26 14:17 | disposition home or self-care (01) ==
PROVIDERS: Visit Provider Physician Assistant Surgical
DX: E66.3 Overweight (principal); L98.7 Excessive and redundant skin and subcutaneous tissue; Z98.84 Bariatric surgery status
CPT/HCPCS: 99214

== ENCOUNTER → 2022-11-26 13:22 | Outpatient (BNVA) | payer OTHER, SELFPAY | PROVIDERS: Visit Provider Physician Assistant Surgical | DX: E66.3 Overweight (principal); L98.7 Excessive and redundant skin and subcutaneous tissue; Z98.84 Bariatric surgery status; Z68.28 Body mass index [BMI] 28.0-28.9, adult | CPT/HCPCS: 99212 ==

== ENCOUNTER 2022-12-10 09:48 | Outpatient (REF) | payer OTHER, SELFPAY ==
[2022-12-10 10:09] LABS: MANUAL DIFF FLAG NO
[2022-12-10 10:39] LABS: Basophils Percent Auto 0.5 % (0-2); Eosinophils Absolute Auto 0.1 X10*3/uL (0.0-0.4); Eosinophils Percent Auto 3.5 % (0-4); Hematocrit 43.2 % (37.0-47.0); Hemoglobin 14.1 g/dl (12.0-16.0); Imm Gran Abs Auto 0.01 X10*3/uL (0.00-0.03); Imm Gran Pct Auto 0.3 % (0.0-0.4); Lymphocytes Absolute Auto 1.9 X10*3/uL (1.2-4.9); Lymphocytes Percent Auto 50.1 % (20-40); Mean Corpuscular HGB Conc 32.6 g/dl (31.0-35.0); Mean Corpuscular Hemoglobin 29.6 pg (27.0-33.0); Mean Corpuscular Volume 90.6 fL (80.0-98.0); Mean Platelet Volume 9.7 fL (9.4-12.3); Monocytes Absolute Auto 0.3 X10*3/uL (0.1-1.2); Monocytes Percent Auto 7.2 % (2-11); Neutrophils Absolute Auto 1.4 x10*3/uL (2.0-8.3); Neutrophils Percent Auto 38.4 % (45-73); Platelet Count 253 X10*3/uL (160-400); Red Blood Count 4.77 X10*6/uL (4.20-5.50); Red Cell Distribution Width 13.8 % (11.0-16.0); White Blood Count 3.8 X10*3/uL (4.8-10.8)
[2022-12-10 10:50] LABS: Estimated Average Glucose 111 mg/dL; Hemoglobin A1c % 5.5 %
[2022-12-10 11:54] LABS: Folate 12.2 ng/mL (> or = 4.0); Vitamin B12 > 2000 pg/mL (200-900)
[2022-12-10 12:03] LABS: Alanine Aminotransferase 33 U/L (0-31); Albumin Level 4.1 g/dL (3.5-5.0); Alkaline Phosphatase 123 U/L (39-117); Anion Gap 12 (12-20); Aspartate Amino Transferase 23 U/L (5-31); Bilirubin Total 0.7 mg/dL (0.0-1.0); Blood Urea Nitrogen 18 mg/dL (9-16); Calcium 9.7 mg/dL (8.4-10.2); Carbon Dioxide 30 mmol/L (22-29); Chloride 105 mmol/L (96-108); Cholesterol 141 mg/dL; Estimated Glomerular Filt Rate > 60; Glucose Random 90 mg/dL (60-115); HDL Cholesterol 53 mg/dL; Iron 84 mcg/dL (30-160); LDL Cholesterol Calculated 73 mg/dl; Percent Iron Saturation 32 % (15-50); Potassium 4.5 mmol/L (3.3-5.1); Sodium 142 mmol/L (135-145); Total Iron Binding Capacity 260 mcg/dL (228-428); Total Protein 7.8 g/dL (6.5-8.0); Triglycerides 77 mg/dL; Unsaturated Iron Binding 176 ug/dL
[2022-12-10 12:11] LABS: Ferritin 85 ng/mL (10-250); Insulin 9 uU/mL (2-29); TSH reflex Free T4 1.16 uIU/mL (0.32-4.0); Vitamin D 25-OH Total 53.7 ng/mL (>30)
[2022-12-12 16:53] LABS: Calcium (PTHI) 9.6 mg/dL (8.6-10.4); PTHI 26 pg/mL (16-77)
[2022-12-13 18:34] LABS: Zinc 76 mcg/dL (60-130)
[2022-12-16 04:19] LABS: Vitamin A 57 mcg/dL (38-98)
== END 2022-12-10 09:49 | disposition home or self-care (01) ==
LOC: HO.LAB 09:48
PROVIDERS: Visit Provider Physician Assistant Surgical
DX: E66.3 Overweight (principal); K91.2 Postsurgical malabsorption, not elsewhere classified; L98.7 Excessive and redundant skin and subcutaneous tissue; Z98.84 Bariatric surgery status
CPT/HCPCS: 36415; 80053; 80061; 82306; 82607; 82728; 82746; 83036; 83525; 83540; 83970; 84443; 84590; 84630; 85025; 86140

== ENCOUNTER → 2023-02-25 12:46 | Outpatient (BNVA) | payer OTHER, SELFPAY | PROVIDERS: PCP Internal Medicine; Visit Provider Dietitian, Registered | DX: E66.9 Obesity, unspecified (principal); E11.9 Type 2 diabetes mellitus without complications; Z98.84 Bariatric surgery status; Z71.3 Dietary counseling and surveillance | CPT/HCPCS: 97803 ==

== ENCOUNTER 2023-04-09 11:09 | Outpatient (AMB) | payer OTHER, SELFPAY ==
--- NOTE | 2023-04-09 11:02 | A.OFFVIS_ITS ---
Intake VS Expanded 04/09/23 12:03 Height 5 ft 4 in Weight 161 lb BMI 27.6 Intake Visit Reasons: VIDEO PO LSG 05/29/22 Allergies latex Allergy (Severe, Verified 11/26/22 13:29) Anaphylaxis codeine Adverse Reaction (Intermediate, Verified 11/26/22 13:29) Gastrointestinal Upset HPI Nutrition Presentation Details PO LSG 05/29/22 preop wt 188# weight at 2 MO PO 169# weight at 4 MO PO 166# current weight 161# I know I'm supposed to get down to 145 but would look anorexic her goal is 155# Reason for consult elevated BMI Diet Assmnt Details Breakfast- 2 eggs or a protein bar zone = 14g protein Lunch- Orgain shake with 2 scoops in 8oz UAM or meal Dinner (3pm)- 3oz protein/meat, 3z veg/salad Snack around 6pm- croatian yogurt, can add fruit Last appt, reported feeling stuffed and pain after eating dinner - identified she is eating to an 8 on the food scale. Now she is using a food scale and lou lizing she was eating more than reported. esting 6oz total and feels at a 5 on the scale. feels great. Exercise: walks when she can - 5 miles. has used her apartment gym Vitamins: not a bariatric vitamin , taking magnesium, D3, Calcium, B12, C, biotin, omega 3, fish oil, iron Dietary counseling reduction Diagnosis Nutrition problem #1 overweight/obesity As related to (etiology) #1 excess energy intake and physical inactivity As evidenced by (sign/symptom) #1 high BMI Monitoring/Goals Nutrition problem monitoring total energy intake, level of knowledge/skill, total PRO intake, total CHO intake and weight Outcome progress progressing Learning/Education Readiness to learn good Stages of change action Most Recent Diabetes Results: Cholesterol 141 mg/dL 12/10/22 HDL Cholesterol 53 mg/dL 12/10/22 Triglycerides 77 mg/dL 12/10/22 Creatinine 0.74 mg/dL (0.5-1.4) 12/10/22 Blood Urea Nitrogen 18 mg/dL (9-16) H 12/10/22 Sodium 142 mmol/L (135-145) 12/10/22 Potassium 4.5 mmol/L (3.3-5.1) 12/10/22 Chloride 105 mmol/L (96-108) 12/10/22 Carbon Dioxide 30 mmol/L (22-29) H 12/10/22 Calcium 9.7 mg/dL (8.4-10.2) 12/10/22 AST 23 U/L (5-31) 12/10/22 ALT 33 U/L (0-31) H 12/10/22 Total Protein 7.8 g/dL (6.5-8.0) 12/10/22 Albumin 4.1 g/dL (3.5-5.0) 12/10/22 [facility] Medical History (Updated 09/05/22 @ 10:52 by DAYNA Rosenbaum) History of COVID-19 Asthma Lupus GERD (gastroesophageal reflux disease) Elevated cholesterol HTN (hypertension) Diabetes Surgical History History of back surgery History of History of esophagogastroduodenoscopy (EGD) History of partial hysterectomy Hx of cholecystectomy Hx of colonoscopy S/P laparoscopic sleeve gastrectomy Social History Household Members: Unknown / Unable to assess Housing: House Are you a primary care transport nurse to a significant other at home: No Do you presently have visiting nurse or other home services: No Patient Tobacco Use Status: Former Tobacco user Quit Date: 2019 Tobacco use type: Cigarette Assessment & Plan Assessment & Plan (1) Overweight: Code(s): E66.3 - Overweight Plan Nutrition follow up after seeing PA for routine annual appt Patient Instructions: Doing great. She has no concerns today. Continue to bring awareness to hunger/satiety scale Telehealth Telehealth Location of provider rendering services: practice address Location of patient: address on file Patient Identification confirmed using: Name, : Yes Telehealth method: video Patient verbally consented to treatment: Yes Patient verbally consented to billing insurance company: Yes Patient informed of any privacy concerns related to visit: Yes Minutes spent on Phone/Video with Pt.: 20 Coding Level of Care Code Nutr Indiv Subseq (90202) Diagnoses Overweight E66.3 Time Spent (min) 20
[2023-04-09 12:03] VITALS: BMI 27.6
== END 2023-04-09 12:30 | disposition home or self-care (01) ==
LOC: HO.HBS 11:09
PROVIDERS: PCP Internal Medicine; Visit Provider Dietitian, Registered
DX: E66.3 Overweight (principal)

== ENCOUNTER → 2023-04-09 11:09 | Outpatient (BNVA) | payer OTHER, SELFPAY | PROVIDERS: PCP Internal Medicine; Visit Provider Dietitian, Registered | DX: E66.3 Overweight (principal); Z68.27 Body mass index [BMI] 27.0-27.9, adult | CPT/HCPCS: 97803 ==

== ENCOUNTER 2023-07-21 10:50 | Outpatient (AMB) | payer OTHER, SELFPAY ==
--- NOTE | 2023-07-21 10:41 | A.OFFVIS_ITS ---
Intake VS Expanded 07/21/23 10:44 Height 5 ft 4 in Weight 159 lb BMI 27.3 Intake Visit Reasons: VIDEO PO LSG 05/29/22 Allergies latex Allergy (Severe, Verified 11/26/22 13:29) Anaphylaxis codeine Adverse Reaction (Intermediate, Verified 11/26/22 13:29) Gastrointestinal Upset Medication List - Last Reconciled 07/21/23 by DAYNA Rosenbaum blood-glucose meter (FreeStyle Lite Meter kit) As directed clotrimazole 1% 1 appl topical BID diltiazem HCl 300 mg PO DAILY fluticasone furoate-vilanterol 200-25 mcg/dose (Breo Ellipta) 1 ea inhalation DAILY pantoprazole 40 mg PO DAILY rosuvastatin 5 mg PO DAILY HPI HPI Comments History of Present Illness Details This?is a?63?yo female who is s/p LSG 05/29/2022. Presents for 13 month post op visit. Weight at last visit on 04/09/2023 was 161 pounds with a BMI of 27.6, weight today is 159 pounds, representing a 2 pound weight loss with a BMI today of [].? No complaints of nausea, emesis, abdominal pain or reflux, or constipation. Present meal plan includes: Breakfast- 2 eggs or a protein bar zone = 14g protein Lunch- Orgain shake with 2 scoops in 8oz UAM or meal Dinner (3pm)- 3oz protein/meat, 3z veg/salad Snack around 6pm- jordanian yogurt, can add fruit Exercise: walks when she can - 5 miles. has used her apartment gym Pt reports issues of excess skin of upper arms and abdomen. Regarding abdomen, pt reports rashes in skin fold which are much worse after walking her dog. Has to shower several times a day and it is difficult to clean as the excess skin makes the area difficult to reach. She notices an unpleasant odor when sweat collects in the skin fold which is much worse in summertime with hotter weather. She has tried the clotrimazole ointment which has not completely resolved the problem. Regarding upper arms, pt reports chafing/rashes when excess skin rubs against torso. Arms feel very heavy and uncomfortable due to excess skin, making walking and exercise more difficult. Has to wear long sleeve shirts even in summer to prevent chafing and irritation, which is not sustainable for her in the summer and hot weather.??? [facility] Medical History (Updated 09/05/22 @ 10:52 by DAYNA Rosenbaum) History of COVID-19 Asthma Lupus GERD (gastroesophageal reflux disease) Elevated cholesterol HTN (hypertension) Diabetes Surgical History History of back surgery History of History of esophagogastroduodenoscopy (EGD) History of partial hysterectomy Hx of cholecystectomy Hx of colonoscopy S/P laparoscopic sleeve gastrectomy Social History Household Members: Unknown / Unable to assess Housing: House Are you a primary progressive care manager to a significant other at home: No Do you presently have visiting nurse or other home services: No Patient Tobacco Use Status: Former Tobacco user Quit Date: 2019 Tobacco use type: Cigarette Physical Exam Vital Signs: BMI result Body Mass Index 27.3 Assessment & Plan Assessment & Plan (1) Excess skin: Code(s): L98.7 - Excessive and redundant skin and subcutaneous tissue (2) Overweight: Code(s): E66.3 - Overweight (3) S/P laparoscopic sleeve gastrectomy: Comment: 05/23/22 Mark Quevedo MD Code(s): Z98.84 - Bariatric surgery status Plan No changes made to meal plan today. Pt is experiencing issues of excess skin of abdomen resulting in frequent painful and malodorous rashes refractory to topical Rx treatment. She is also experiencing limitation and discomfort in activities of daily living, including walking. She would benefit from definitive treatment of panniculectomy. Pt is also experiencing issues of excess skin of upper arms resulting in compromised skin integrity in the form of painful chafing/rashes. She is also experiencing limitation and discomfort in activities of daily living, including walking. Conservative measures have been ineffective at resolving these issues and she would benefit from definitive treatment of brachioplasty. Will schedule a time for photos to be taken, and will submit to insurance. Discussed expected postop course today. Patient is overweight and with ongoing issues of excess skin of abdomen and upper arms, and is not considered stable at this time. I spent a total of 30 minutes reviewing/updating records, examining the patient and counseling the patient on weight management as detailed above. Telehealth Telehealth Location of provider rendering services: practice address Location of patient: address on file Patient Identification confirmed using: Name, : Yes Telehealth method: voice only Patient verbally consented to treatment: Yes Patient verbally consented to billing insurance company: Yes Patient informed of any privacy concerns related to visit: Yes Minutes spent on Phone/Video with Pt.: 15 Coding Level of Care Code Tele Est Pt Level 4 (83125) Diagnoses Excess skin L98.7 Overweight E66.3 S/P laparoscopic sleeve gastrectomy Z98.84
[2023-07-21 10:44] VITALS: BMI 27.3
== END 2023-07-21 11:03 | disposition home or self-care (01) ==
LOC: HO.HBS 10:50
PROVIDERS: PCP Internal Medicine; Visit Provider Physician Assistant Surgical
DX: L98.7 Excessive and redundant skin and subcutaneous tissue (principal); E66.3 Overweight; Z68.27 Body mass index [BMI] 27.0-27.9, adult; Z98.84 Bariatric surgery status
CPT/HCPCS: 99442

== ENCOUNTER → 2023-07-21 10:50 | Outpatient (BNVA) | payer OTHER, SELFPAY | PROVIDERS: PCP Internal Medicine; Visit Provider Physician Assistant Surgical ==

== ENCOUNTER 2023-08-19 13:59 | Outpatient (AMB) | payer OTHER, SELFPAY ==
--- NOTE | 2023-08-19 15:17 | MHC.OFFVISWM ---
VS Expanded 08/19/23 15:22 Height 5 ft 4 in Weight 158 lb BMI 27.1 Intake Visit Reasons: TV PO Pannic/Brachio 09/15/23 Allergies latex Allergy (Severe, Verified 08/19/23 15:17) Anaphylaxis codeine Adverse Reaction (Intermediate, Verified 08/19/23 15:17) Gastrointestinal Upset Medication List - Last Reconciled 08/19/23 by Mark Quevedo MD blood-glucose meter (FreeStyle Lite Meter kit) As directed cephalexin 500 mg PO Q12H clotrimazole 1% 1 appl topical BID diltiazem HCl CD 300 mg PO DAILY docusate sodium (Colace) 100 mg PO DAILY fluticasone furoate-vilanterol 200-25 mcg/dose (Breo Ellipta) 1 ea inhalation DAILY pantoprazole 40 mg PO DAILY rosuvastatin 5 mg PO DAILY HPI HPI TV PO Pannic/Brachio 09/15/23: Details: Start time: 3.15pm, End time: 3.45pm ?I spent 25 minutes speaking with the patient on the phone plus an additional 5 minutes reviewing and updating records for a total of 30 minutes HPI Comments Details: Overall weight loss: 55.4lbs, or 26% TBWL Is doing one boiled egg, lunch (3oz fish and 1oz hank), one Orgain protein shake (2 scoops in almond milk), and one Azeri yogurt Exercise: doing treadmill for 300 calories, and some outside walking PFSH Medical History (Updated 08/19/23 @ 15:15 by Mark Quevedo MD) History of COVID-19 Asthma Lupus GERD (gastroesophageal reflux disease) Elevated cholesterol HTN (hypertension) Diabetes Surgical History History of back surgery History of History of esophagogastroduodenoscopy (EGD) History of partial hysterectomy Hx of cholecystectomy Hx of colonoscopy S/P laparoscopic sleeve gastrectomy Social History Household Members: Unknown / Unable to assess Housing: House Are you a primary progressive care unit registered nurse to a significant other at home: No Do you presently have visiting nurse or other home services: No Patient Tobacco Use Status: Former Tobacco user Quit Date: 2019 Tobacco use type: Cigarette Physical Exam Vital Signs: BMI result Body Mass Index 27.1 Telehealth Telehealth Telehealth Platform: Telephone Location of provider rendering services: practice address Location of patient: address on file Patient Identification confirmed using: Name, : Yes Telehealth method: voice only Patient verbally consented to treatment: Yes Patient verbally consented to billing insurance company: Yes Patient informed of any privacy concerns related to visit: Yes Minutes spent on Phone/Video with Pt.: 30 Assessment & Plan Assessment & Plan (1) Excess skin: Code(s): L98.7 - Excessive and redundant skin and subcutaneous tissue Category: Medical Plan: 1. Plan for bilateral brachioplasty and panniculectomy. Risks of infection, bleeding, asymmetry, wound dehiscence and blood clots were discussed with the patient. 2. You will have a drain the abdomen that may stay a few weeks before it may be removed 3. You will need to be doing sponge baths the first 1-2 weeks. No showers. You need to have help at home to get you up and limit your activities as much as possible for at least the 4-6 weeks after surgery 4. We will arrange for a visiting nurse to come at home to help you with dressing changes and send me pictures of the procedures. We will send at your home supplies for the dressing changes. 5. Change nutritional plan to one ORGAIN protein shake (ONE scoop in 8oz almond milk) at 9am-11am, one Zone Perfect protein bar at 12pm-2pm, one Orgain protein shake (ONE scoop in 8oz almond milk) at 3pm-5pm, dinner at 6pm (6 forks of fish and 2 forks of Yuca) and one more Zone Perfect protein bar at 8pm-10pm. This will improve weight loss and healing after surgery. 6. Continue all vitamins 7. Do blood work not fasting any day between Thursday09/07/23 and Thursday09/11/23 and fern picker the antibiotic prescription from your pharmacy 8. Risks and complications were discussed the possibility of bleeding that may require transfusion, loss of the umbilicus, wound dehiscence or infection, dog ears , flap asymmetry. We also discussed the importance of strict avoidance of weight lifting. 9. Avoid aspirin, motrin, ibuprofen, Aleve, Advil, Naproxyn. Only Tylenol is OK Orders: Orders Comprehensive Met. Panel Today K91.2 - Postsurgical malabsorption, not elsewhere classified, Z90.3 - Acquired absence of stomach [part of] TSH reflex Free T4 Today K91.2 - Postsurgical malabsorption, not elsewhere classified, Z90.3 - Acquired absence of stomach [part of] Hemoglobin A1c Today K91.2 - Postsurgical malabsorption, not elsewhere classified, Z90.3 - Acquired absence of stomach [part of] Prothrombin Time INR Today K91.2 - Postsurgical malabsorption, not elsewhere classified, Z90.3 - Acquired absence of stomach [part of] Type and Screen Today K91.2 - Postsurgical malabsorption, not elsewhere classified, Z90.3 - Acquired absence of stomach [part of] Vitamin B12 Today K91.2 - Postsurgical malabsorption, not elsewhere classified, Z90.3 - Acquired absence of stomach [part of] Partial Thromboplastin Time Today K91.2 - Postsurgical malabsorption, not elsewhere classified, Z90.3 - Acquired absence of stomach [part of] Vitamin D 25-OH Total Today K91.2 - Postsurgical malabsorption, not elsewhere classified, Z90.3 - Acquired absence of stomach [part of] Complete Blood Count Auto Diff Today K91.2 - Postsurgical malabsorption, not elsewhere classified, Z90.3 - Acquired absence of stomach [part of] Ferritin Today K91.2 - Postsurgical malabsorption, not elsewhere classified, Z90.3 - Acquired absence of stomach [part of] Insulin Today K91.2 - Postsurgical malabsorption, not elsewhere classified, Z90.3 - Acquired absence of stomach [part of] Vitamin A Today K91.2 - Postsurgical malabsorption, not elsewhere classified, Z90.3 - Acquired absence of stomach [part of] Vitamin B1 Today K91.2 - Postsurgical malabsorption, not elsewhere classified, Z90.3 - Acquired absence of stomach [part of] Lipid Panel Today K91.2 - Postsurgical malabsorption, not elsewhere classified, Z90.3 - Acquired absence of stomach [part of] C Reactive Protein Today K91.2 - Postsurgical malabsorption, not elsewhere classified, Z90.3 - Acquired absence of stomach [part of] Zinc Today K91.2 - Postsurgical malabsorption, not elsewhere classified, Z90.3 - Acquired absence of stomach [part of] IRON PROFILE Today K91.2 - Postsurgical malabsorption, not elsewhere classified, Z90.3 - Acquired absence of stomach [part of] Medications: New cephalexin 500 mg PO Q12H 60 caps 2RF M79.3 - Panniculitis, unspecified docusate sodium (Colace) 100 mg PO DAILY 90 caps 0RF K59.00 - Constipation, unspecified
[2023-08-19 15:22] VITALS: BMI 27.1
== END 2023-08-19 16:58 | disposition home or self-care (01) ==
LOC: HO.HBS 13:59
PROVIDERS: PCP Internal Medicine; Visit Provider Surgery
DX: L98.7 Excessive and redundant skin and subcutaneous tissue (principal)
CPT/HCPCS: 99499

== ENCOUNTER → 2023-08-19 13:59 | Outpatient (BNVA) | payer OTHER, SELFPAY | PROVIDERS: PCP Internal Medicine; Visit Provider Surgery ==

== ENCOUNTER 2023-09-09 09:55 | Outpatient (REF) | payer OTHER, SELFPAY ==
[2023-09-09 10:26] LABS: MANUAL DIFF FLAG NO
[2023-09-09 10:43] LABS: Basophils Percent Auto 0.9 % (0-2); Eosinophils Absolute Auto 0.1 X10*3/uL (0.0-0.4); Eosinophils Percent Auto 3.1 % (0-4); Hematocrit 40.8 % (37.0-47.0); Hemoglobin 13.8 g/dl (12.0-16.0); Lymphocytes Absolute Auto 1.7 X10*3/uL (1.2-4.9); Lymphocytes Percent Auto 51.7 % (20-40); Mean Corpuscular HGB Conc 33.8 g/dl (31.0-35.0); Mean Corpuscular Hemoglobin 31.1 pg (27.0-33.0); Mean Corpuscular Volume 91.9 fL (80.0-98.0); Mean Platelet Volume 9.5 fL (9.4-12.3); Monocytes Absolute Auto 0.4 X10*3/uL (0.1-1.2); Monocytes Percent Auto 12.1 % (2-11); Neutrophils Percent Auto 32.2 % (45-73); Platelet Count 218 X10*3/uL (160-400); Red Blood Count 4.44 X10*6/uL (4.20-5.50); Red Cell Distribution Width 13.3 % (11.0-16.0); White Blood Count 3.2 X10*3/uL (4.8-10.8)
[2023-09-09 10:48] LABS: INTERNATIONAL NORM RATIO 0.9 (0.9-1.1); Prothrombin Time 11.5 SEC (11.1-13.3)
[2023-09-09 10:51] LABS: Partial Thromboplastin Time 29.3 SEC (26.0-36.8)
[2023-09-09 11:20] LABS: Estimated Average Glucose 114 mg/dL; Hemoglobin A1c % 5.6 % (<6.0)
[2023-09-09 11:27] LABS: Alanine Aminotransferase 29 U/L (0-31); Albumin Level 4.2 g/dL (3.5-5.0); Alkaline Phosphatase 96 U/L (39-117); Anion Gap 12 (12-20); Aspartate Amino Transferase 27 U/L (5-31); Bilirubin Total 0.5 mg/dL (0.0-1.0); Blood Urea Nitrogen 22 mg/dL (9-16); C Reactive Protein 0.44 mg/dL (< or = 0.50); Calcium 9.8 mg/dL (8.4-10.2); Carbon Dioxide 29 mmol/L (22-29); Chloride 105 mmol/L (96-108); Cholesterol 128 mg/dL (<200); Estimated Glomerular Filt Rate > 60; Glucose Random 74 mg/dL (60-115); HDL Cholesterol 55 mg/dL (>40); Iron 71 mcg/dL (30-160); LDL Cholesterol Calculated 58 mg/dL (<100); Percent Iron Saturation 28 % (15-50); Potassium 4.6 mmol/L (3.3-5.1); Sodium 141 mmol/L (135-145); Total Iron Binding Capacity 251 mcg/dL (228-428); Total Protein 7.7 g/dL (6.5-8.0); Triglycerides 78 mg/dL (<150); Unsaturated Iron Binding 180 ug/dL
[2023-09-09 11:47] LABS: Ferritin 146 ng/mL (10-250); Insulin 10 uU/mL (2-29); TSH reflex Free T4 1.62 uIU/mL (0.32-4.0); Vitamin D 25-OH Total 49.8 ng/mL (>30)
[2023-09-09 11:51] LABS: Vitamin B12 > 2000 pg/mL (200-900)
[2023-09-11 23:52] LABS: Zinc 80 mcg/dL (60-130)
[2023-09-13 10:38] LABS: Vitamin B1 24 nmol/L (8-30)
[2023-09-13 23:36] LABS: Vitamin A 64 mcg/dL (38-98)
== END 2023-09-09 09:56 | disposition home or self-care (01) ==
LOC: HO.LAB 09:55
PROVIDERS: PCP Internal Medicine; Visit Provider Surgery
DX: K91.2 Postsurgical malabsorption, not elsewhere classified (principal); Z90.3 Acquired absence of stomach [part of]
CPT/HCPCS: 36415; 80053; 80061; 82306; 82607; 82728; 83036; 83525; 83540; 84425; 84443; 84590; 84630; 85025; 85610; 85730; 86140

== ENCOUNTER 2023-09-15 05:37 | Day surgery (SDC) | payer OTHER, SELFPAY ==
[2023-09-03 11:36] VITALS: BMI 27.6
--- NOTE | 2023-09-14 10:03 | P.CONAN_ITS ---
Documented by User: Charisse Avila NP 09/14/23 10:06 HPI - Anesthesia Eval Consult details Narrative: 63yo F for Panniculectomy, Brachioplasty s/p gastric sleeve 04/2022 [facility] Active Problems Active Problems: All Active Problems Postgastrectomy malabsorption (Acute) Excess skin (Acute) Overweight (Acute) BMI 32.0-32.9,adult (Acute) COVID (Acute) BMI 33.0-33.9,adult (Acute) Vitamin B12 deficiency (Acute) Vitamin B1 deficiency (Acute) Major depressive disorder, recurrent, in remission, unspecified (Acute) History of cholecystectomy (Acute) Lupus (systemic lupus erythematosus) (Acute) COPD (chronic obstructive pulmonary disease) (Acute) DJD (degenerative joint disease) (Acute) GERD (gastroesophageal reflux disease) (Acute) Sleep apnea with use of continuous positive airway pressure (CPAP) (Acute) Hyperlipidemia (Acute) Non-insulin dependent type 2 diabetes mellitus (Acute) Hypertension (Acute) BMI 35.0-35.9,adult (Acute) Obesity (Acute) S/P laparoscopic sleeve gastrectomy (Acute) Past Medical History Medical History Sleep apnea COVID-19 Back pain History of COVID-19 Asthma Lupus GERD (gastroesophageal reflux disease) Elevated cholesterol HTN (hypertension) Diabetes Family History Family history of problems with anesthesia: No Surgical History Surgical History S/P lumpectomy, right breast S/P laparoscopic sleeve gastrectomy History of partial hysterectomy Hx of colonoscopy Hx of cholecystectomy History of back surgery History of esophagogastroduodenoscopy (EGD) History of History of Problems with Anesthesia: No Social History Social History Household Members: Unknown / Unable to assess Housing: House Are you a primary small animal caretaker to a significant other at home: No Do 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 If so, by whom?: No Are you DNR?: No Advance Directives: No Advance Directives Information Provided: Yes Advance Directives on File: No Recently lost weight without trying: No Eating poorly because of decreased appetite: No Nutrition Risks: No Nutritional Risk Patient : No : No Poor oral hygiene: Yes (full upper and lower dentures) Meds Allergies Allergy/AdvReac Type Severity Reaction Status Date / Time latex Allergy Severe Anaphylaxis Verified 09/15/23 06:15 codeine AdvReac Intermediate Gastrointestinal Verified 09/15/23 06:15 Upset Home Medications ?Medication ?Instructions ?Recorded ?Confirmed ?Last Taken ?Type blood-glucose meter (FreeStyle #1 ea 01/02/22 08/19/23 Unknown History Lite Meter kit) fluticasone furoate 200 1 ea inhalation DAILY PRN 01/02/22 09/03/23 05/16/22 History mcg-vilanterol 25 mcg/dose Shortness Of Breath Or Wheezing inhalation powder (Breo Ellipta) diltiazem HCl 300 mg 300 mg PO DAILY 07/21/23 09/03/23 09/15/23 History capsule,extended release 24 hr rosuvastatin 5 mg tablet 5 mg PO BEDTIME 07/21/23 09/03/23 Unknown History aspirin 81 mg tablet,delayed 81 mg PO DAILY 09/03/23 09/03/23 08/15/23 History release biotin 1,000 mcg chewable tablet 1,000 mcg PO DAILY 09/03/23 09/03/23 Unknown History calcium carbonate 600 mg-vitamin 1 tab PO BEDTIME 09/03/23 09/03/23 Unknown History D3 10 mcg (400 unit) tablet cholecalciferol (vitamin D3) 25 25 mcg PO DAILY 09/03/23 09/03/23 Unknown History mcg (1,000 unit) tablet (Vitamin D3) cyanocobalamin (vitamin B-12) 50 50 mcg PO DAILY 09/03/23 09/03/23 Unknown History mcg tablet (Vitamin B-12) omega 1-hsa-caa-fish oil 60 mg-90 1 cap PO BID 09/03/23 09/03/23 09/12/23 H istory mg-500 mg capsule (Fish Oil) pantoprazole 40 mg tablet,delayed 40 mg PO DAILY PRN Acid Reflux 09/03/23 09/03/23 Unknown History release celecoxib 200 mg capsule 200 mg PO DAILY 09/15/23 09/15/23 09/15/23 History Exam Height,Weight and Vital Signs: Height 5 ft 3 in Weight 70.76 kg Pertinent Lab Results Pertinent Lab Results: Laboratory Tests 09/09/23 10:20 Blood Type O Positive Antibody Screen NEGATIVE Laboratory Tests 09/09/23 10:25 WBC 3.2 L Hgb 13.8 Hct 40.8 Plt Count 218 Sodium 141 Potassium 4.6 Chloride 105 Carbon Dioxide 29 BUN 22 H Creatinine 0.80 Narrative Narrative: EKG 2022 Vent. Rate : 073 BPM Atrial Rate : 073 BPM P-R Int : 172 ms QRS Dur : 090 ms QT Int : 392 ms P-R-T Axes : 065 034 040 degrees QTc Int : 431 ms Normal sinus rhythm with sinus arrhythmia Normal ECG No previous ECGs available Assessment and Plan Assessment Anesthesia Assessment: Chart Reviewed Final Anesthetic Review Family History of Problems with Anesthesia: No History of Problems with Anesthesia: No Documented by User: Aparna Bravo MD 09/15/23 10:19 HPI - Anesthesia Eval Consult details Narrative: 63yo F for Bilateral Brachioplasty and Panniculectomy s/p Laparoscopic Sleeve Gastrectomy on 05/23/2022 with 55.4 lb weight loss. Now with redundant skin. PMFSH Active Problems Active Problems: All Active Problems Postgastrectomy malabsorption (Acute) Excess skin (Acute) Overweight (Acute) BMI 28.2 Vitamin B12 deficiency (Acute) Vitamin B1 deficiency (Acute) Major depressive disorder, recurrent, in remission, unspecified (Acute) History of cholecystectomy (Acute) Lupus (systemic lupus erythematosus) (Acute) COPD (chronic obstructive pulmonary disease) (Acute) DJD (degenerative joint disease) (Acute) GERD (gastroesophageal reflux disease) (Acute) H/o MERVIN. No longer using CPAP Machine Hyperlipidemia (Acute) H/o NIDDM- no longer on medication Hypertension (Acute) BMI 35.0-35.9,adult (Acute) Obesity (Acute) S/P laparoscopic sleeve gastrectomy (Acute) Asthma- no recent symptoms Neutropenia Past Medical History Medical History Sleep apnea COVID-19 Back pain History of COVID-19 Asthma Lupus GERD (gastroesophageal reflux disease) Elevated cholesterol HTN (hypertension) Diabetes Family History Family history of problems with anesthesia: No Surgical History Surgical History S/P lumpectomy, right breast S/P laparoscopic sleeve gastrectomy History of partial hysterectomy Hx of colonoscopy Hx of cholecystectomy History of back surgery History of esophagogastroduodenoscopy (EGD) History of History of Problems with Anesthesia: Yes ('Glue got in my eye during back surgery. 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 If so, by whom?: No Are you DNR?: No Advance Directives: No Advance Directives Information Provided: Yes Advance Directives on File: No Recently lost weight without trying: No Eating poorly because of decreased appetite: No Nutrition Risks: No Nutritional Risk Patient : No : No Poor oral hygiene: Yes (full upper and lower dentures) Meds Allergies Allergy/AdvReac Type Severity Reaction Status Date / Time latex Allergy Severe Anaphylaxis Verified 09/15/23 06:15 codeine AdvReac Intermediate Gastrointestinal Verified 09/15/23 06:15 Upset Home Medications ?Medication ?Instructions ?Recorded ?Confirmed ?Last Taken ?Type blood-glucose meter (FreeStyle #1 ea 01/02/22 08/19/23 Unknown History Lite Meter kit) fluticasone furoate 200 1 ea inhalation DAILY PRN 01/02/22 09/03/23 05/16/22 History mcg-vilanterol 25 mcg/dose Shortness Of Breath Or Wheezing inhalation powder (Breo Ellipta) diltiazem HCl 300 mg 300 mg PO DAILY 07/21/23 09/03/23 09/15/23 History capsule,extended release 24 hr rosuvastatin 5 mg tablet 5 mg PO BEDTIME 07/21/23 09/03/23 Unknown History aspirin 81 mg tablet,delayed 81 mg PO DAILY 09/03/23 09/03/23 08/15/23 History release biotin 1,000 mcg chewable tablet 1,000 mcg PO DAILY 09/03/23 09/03/23 Unknown History calcium carbonate 600 mg-vitamin 1 tab PO BEDTIME 09/03/23 09/03/23 Unknown History D3 10 mcg (400 unit) tablet cholecalciferol (vitamin D3) 25 25 mcg PO DAILY 09/03/23 09/03/23 Unknown History mcg (1,000 unit) tablet (Vitamin D3) cyanocobalamin (vitamin B-12) 50 50 mcg PO DAILY 09/03/23 09/03/23 Unknown History mcg tablet (Vitamin B-12) omega 0-lps-oze-fish oil 60 mg-90 1 cap PO BID 09/03/23 09/03/23 09/12/23 History mg-500 mg capsule (Fish Oil) pantoprazole 40 mg tablet,delayed 40 mg PO DAILY PRN Acid Reflux 09/03/23 09/03/23 Unknown History release celecoxib 200 mg capsule 200 mg PO DAILY 09/15/23 09/15/23 09/15/23 History Exam Height,Weight and Vital Signs: Height 5 ft 3 in Weight 70.76 kg Vital Signs Temp Pulse Resp BP Pulse Ox O2 Del Method 09/15/23 06:36 98.2 F 65 18 121/75 97 Room Air Airway Mallampati Class: III (Small mouth) TM Dist: >3cm Neck ROM: Full Denture: Upper and Lower Loose/Missing/Broken Teeth: Yes Heart: RRR Lungs: CTAB Assessment and Plan Assessment Anesthesia Assessment: Anesthesia Plan Discussed and Chart Reviewed Final Anesthetic Review Family History of Problems with Anesthesia: No History of Problems with Anesthesia: Yes ('Glue got in my eye during back surgery. Had to see eye doctor for several months after') NPO: Yes ASA Class: III Final Preanesthetic Review: No Changes in Pt Med Stat, Meds/Allgs Chart Reviewed, Consent Obtained/Reviewed and Anes Risks/Benef Reviewed Patient Risk: Intermediate Procedure Risk: Intermediate Assessment/Block/Sedation in SS: Assess/Block/Sedation-SS Anesthetic Plan Anesthetic Plan: GA Disposition: Standard PACU
[2023-09-15] VITALS (15 sets, daily range): BP systolic 121–164; BP diastolic 62–82; PULSE 53–89; RESP 8–18; TEMP 36.4–36.9; O2SAT 96–100; BMI 28.2
[2023-09-15] MEDS: Lactated Ringers 1,000 ML 100 ML IVCONT (06:23)
--- NOTE | 2023-09-15 07:58 | P.BOP_ITS ---
Brief Operative Note Date of Service: 09/15/23 Pre-op diagnosis: Excess skin Post-op diagnosis: same Procedure: PROCEDURE: Panniculectomy with umbilical transposition and bilateral subcutaneous fat flaps, bilateral brachioplasty INDICATION: This a 71 year old female who underwent laparoscopic sleeve gastrectomy on 05/23/2022. She had an excellent result achieving a BMI of 27.2 kg/m2 with a total weight loss of 55.4lbs, or 25.96% of her TBWL. As a result, she has developed panniculitis which has not resolved despite continuous use of clotrimazole ointment as well as skin irritation and intetrigo in both upper arms. On exam she has extreme skin laxity due to massive weight loss and age with the abdominal pannus completely hiding the genitalia and the upper arms 6 cm below the level of the triceps especially the right arm. Panniculectomy with bilateral brachioplasty was recommended. We discussed the two options for the panniculectomy of using a combined vertical and horizontal incisions or just a horizontal (bikini) incision. It was my recommendation to do only horizontal incision based on her body habitus and skin laxity. The patient agreed with this. Risks and complications were discussed with the patient including bleeding, infection, umbilical loss, flap necrosis, asymmetry, dehiscence, seroma, VTE. The patient understood the risks and was in agreement to proceed with surgery. PROCEDURE: The incisions were appropriately marked at the preop area with the patient standing and laying down. After induction of general anesthesia a Zuniga catheter and pneumatic compression devices were placed. The patient was prepped and draped in the usual sterile manner and the incisions were marked again and confirmed. In similar fashion both upper arms were also marked when the patient was standing. The upper arms were performed first. The skin was infiltrated with lidocaine and epinephrine. Skin was excised with the #15 blade. Cautery was used to separate the skin from subcutaneous tissues. Careful attention was paid to make sure that the plain of excision was superficial as close to the skin as possible. The right upper arm skin was 19 cm x 9 cm and the left 21 cm x 7 cm. Skin was closed in two layers using interrupted 3.0 Monocryl sutures for the dermis and 4.0 subcuticular Monocryl suture for the skin. The skin was infiltrated with lidocaine and epinephrine. The #10 blade scalpel was used for the large incisions and the #15 blade scalpel for the umbilicus. Cautery was used to divide the subcutaneous tissues until the fascia was identified. Then I used the cautery to separate the pannus from the fascia. The inferior incision was made initially and I mobilized the flap for a several centimeters cephalad to the umbilicus. The umbilicus was incised circumferentially and detached from the surrounding tissues all the way to the fascia while its stalk was preserved. With the patient in reflex position I confirmed that the skin flaps were appropriate and would allow for the tissues to come together with reasonable tension. At that point a horizontal incision was made 4 cm above the umbilicus. #10 blade was used for the skin, cautery for the dermis and for the remaining tissues. A subcutaneous fat flap was raised from the upper skin flap in order to fill the space under the skin and support the closure of the two flaps. In addition the inferior flap was mobilized caudally for a few centimeters to create a space for the subcutaneous fat flap as well as relieve tension from the closure. A circumferential incision was made at the area where the umbilicus would be re-implanted. The umbilicus was appro priately oriented and was delivered through the defect and was secured in place with a [place]. No bleeding was noted anywhere. One RAMON drain was placed from the left corner of the horizontal incision across the wound and was secured in place with a silk suture. A total of 7ml of Zynrelef was applied on top of the fascia and under the subcutaneous fat flaps. The subcutaneous fat flap was secured under the inferior flap with several interrupted 3.0 Monocryl sutures. The two flaps were brought together and were attached at the midline of the horizontal incision with a #3.0 Monocryl suture. At that point the umbilicus was properly oriented and was re-approximated to the skin with 8 interrupted 3.0 Monocryl sutures. In a similar fashion the skin flaps were re-approximated with multiple 3.0 Monocryl sutures. The skin was closed in all incisions and umbilicus with 4.0 Monocryl sutures. Steri-strips, xeroform gauzes and gauzes were used to cover the incisions. An abdominal binder was also placed. The was awaken and was transferred to the recover room in a stable condition. I was present and performed the entire procedure. Mr. Ross was the emergency veterinary assistant. Eber Quevedo MD, PhD, FACS Surgeon: Mark Quevedo MD Surgeon: Mark Quevedo MD Anesthesia: GETA, local and other (7ml Zynrelef) Was an Sap Administrator used for this Procedure?: No Sap Administrator: Aaron Ross Estimated blood loss (mL): 10 IV fluids (mL): 3,400 Urine output (mL): 250 Pathology: other (1) Left arm, 2) right arm, 3) abdominal pannus) Condition: stable Disposition: PACU
[2023-09-15] MEDS: ondansetron HCL 4 MG/2 ML VIAL IVPUSH ×2 (15:51→18:59)
[2023-09-15] MEDS: Aprepitant 32 MG/4.4 ML VIAL IVPUSH (21:04)
--- NOTE | 2023-09-16 13:30 | P.F2F_ITS ---
Service Date Service Date: 09/15/23 Encounter Date of encounter: 09/15/23 Reasons for Services Signs and symptoms assessed: post op panniculectomy and bilateral brachioplasty Reason for shelter: postoperative assessment and/or care Homebound: Leaving the home is medically contraindicated at this time without the asist of a device and/or another person due th the listed conditions above and below. Reason homebound: unable to drive Certification: Based on the above findings, I certify that this patient is confined to the home and needs intermittent shelter care, physical therapy and/or speech therapy, or continues to need occupational therapy. The patient is under my care, and I have initiated the establishment of the plan of care. The patient will be followed by a physician who will periodically review the plan of care. Time Spent With Patient Time: Total time managing care of this patient today 25 minutes.
== END 2023-09-15 22:17 | disposition home or self-care (01) ==
PROVIDERS: PCP Internal Medicine; Visit Provider Surgery
PROC: 0JB80ZZ Excision of Abdomen Subcutaneous Tissue and Fascia, Open Approach (ICD-10-PCS; CPT 15830; principal; 2023-09-15 07:30)
PROC: (CPT 15836; 2023-09-15 07:30)
DX: L98.7 Excessive and redundant skin and subcutaneous tissue (principal); M79.3 Panniculitis, unspecified; K91.2 Postsurgical malabsorption, not elsewhere classified; E11.9 Type 2 diabetes mellitus without complications; I10 Essential (primary) hypertension; E78.00 Pure hypercholesterolemia, unspecified; K21.9 Gastro-esophageal reflux disease without esophagitis; J44.9 Chronic obstructive pulmonary disease, unspecified; E51.9 Thiamine deficiency, unspecified; E53.8 Deficiency of other specified B group vitamins; M32.9 Systemic lupus erythematosus, unspecified; F33.40 Major depressive disorder, recurrent, in remission, unspecified; K59.00 Constipation, unspecified; Z87.891 Personal history of nicotine dependence; Z90.3 Acquired absence of stomach [part of]; Z90.49 Acquired absence of other specified parts of digestive tract; Z98.84 Bariatric surgery status; Z90.711 Acquired absence of uterus with remaining cervical stump; Z99.89 Dependence on other enabling machines and devices; Z79.02 Long term (current) use of antithrombotics/antiplatelets; Z79.899 Other long term (current) drug therapy
CPT/HCPCS: 15830; 15836; 86850; 86900; 86901; 88304; C9088; C9145; J0131; J0690; J1100; J1170; J2250; J2405; J2704; J3010; J3370

== ENCOUNTER → 2023-09-15 05:37 | Outpatient (BNV) | payer OTHER, SELFPAY | PROVIDERS: PCP Internal Medicine; Visit Provider Surgery | DX: M79.3 Panniculitis, unspecified (principal); L98.7 Excessive and redundant skin and subcutaneous tissue | CPT/HCPCS: 15830; 15836; G0180 ==

== ENCOUNTER 2023-09-23 13:46 | Outpatient (AMB) | payer OTHER, SELFPAY ==
--- NOTE | 2023-09-23 13:49 | MHC.OFFVISWM ---
VS Expanded 09/23/23 14:07 BP 148/81 H Blood Pressure Location Rt radial Blood Pressure Position Sitting Pulse 84 Pulse Source Pulse Oximeter Temp 96.6 F L Temperature Source Tympanic Pulse Oximetry 98 Oxygen Delivery Method Room Air Intake Visit Reasons: (OV) PO Pannic/Brachio 09/15/23 Allergies latex Allergy (Severe, Verified 09/23/23 14:08) Anaphylaxis codeine Adverse Reaction (Intermediate, Verified 09/23/23 14:08) Gastrointestinal Upset HPI Comments Details: Patient is a pleasant 63-year-old female who returns to the office today in follow-up. She is status post panniculectomy and brachioplasty performed on 09/15/2023. She reports approximately 50 mL of serosanguineous fluid from the collection bulb daily. She continues both antibiotics and meal plan as directed by Dr. Quevedo. [facility] Medical History Sleep apnea COVID-19 Back pain History of COVID-19 Asthma Lupus GERD (gastroesophageal reflux disease) Elevated cholesterol HTN (hypertension) Diabetes Surgical History S/P lumpectomy, right breast S/P laparoscopic sleeve gastrectomy History of partial hysterectomy Hx of colonoscopy Hx of cholecystectomy History of back surgery History of esophagogastroduodenoscopy (EGD) History of Social History Household Members: Unknown / Unable to assess Housing: House Are you a primary child care lead teacher to a significant other at home: No Do you presently have 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 No evidence of dehiscence or infection. Transverse abdominal incision also healing well without any evidence of dehiscence or infection, umbilicus is viable. Assessment & Plan Assessment & Plan (1) S/P panniculectomy: Code(s): Z98.890 - Other specified postprocedural states Category: Surgical Plan: Patient doing well overall. Continue current treatment plans with dressings and monitoring drain output. Continue antibiotics and meal plan. Return to the office in 1 week. (2) S/P brachioplasty: Code(s): Z98.890 - Other specified postprocedural states Category: Surgical Plan: As above
[2023-09-23 14:07] VITALS: BP 148/81; PULSE 84; TEMP 35.9; O2SAT 98
== END 2023-09-23 14:36 | disposition home or self-care (01) ==
PROVIDERS: PCP Internal Medicine; Visit Provider Physician Assistant Surgical
DX: Z98.890 Other specified postprocedural states (principal)
CPT/HCPCS: 99024

== ENCOUNTER → 2023-09-23 13:46 | Outpatient (BNVA) | payer OTHER, SELFPAY | PROVIDERS: PCP Internal Medicine; Visit Provider Physician Assistant Surgical | DX: Z48.817 Encounter for surgical aftercare following surgery on the skin and subcutaneous tissue (principal); Z98.890 Other specified postprocedural states | CPT/HCPCS: 99212 ==

== ENCOUNTER 2023-09-29 08:27 | Outpatient (AMB) | payer OTHER, SELFPAY ==
--- NOTE | 2023-09-29 08:29 | A.OFFVIS_ITS ---
VS Expanded 09/29/23 08:39 BP 121/84 Blood Pressure Location Rt brachial Blood Pressure Position Sitting Pulse 86 Pulse Source Pulse Oximeter Temp 96.3 F L Temperature Source Temporal Artery Scan Pulse Oximetry 97 Oxygen Delivery Method Room Air Intake Visit Reasons: (OV) PO Pannic/Brachio 09/15/23 Allergies latex Allergy (Severe, Verified 09/29/23 08:59) Anaphylaxis codeine Adverse Reaction (Intermediate, Verified 09/29/23 08:59) Gastrointestinal Upset HPI Comments Details: Patient is a 63-year-old female who returns to the office today in follow-up. She is status post panniculectomy and bilateral brachioplasty performed on 09/15/2023. She continues take the antibiotics and following the meal plan as directed by Dr. Quevedo. She has noted chills over the last 4 days without any other symptoms. Specifically denying fevers, cough, abdominal pain, change in bowel or bladder habits ,sick contacts, headache. Reports 40-50 mL of se rosanguineous fluid in the collection bulb daily. [facility] Medical History Sleep apnea COVID-19 Back pain History of COVID-19 Asthma Lupus GERD (gastroesophageal reflux disease) Elevated cholesterol HTN (hypertension) Diabetes Surgical History S/P lumpectomy, right breast S/P laparoscopic sleeve gastrectomy History of partial hysterectomy Hx of colonoscopy Hx of cholecystectomy History of back surgery History of esophagogastroduodenoscopy (EGD) History of Social History Household Members: Unknown / Unable to assess Housing: House Are you a primary chronic care nurse to a significant other at home: No Do you presently have visiting nurse or 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 Assessment & Plan Assessment & Plan (1) S/P panniculectomy: Code(s): Z98.890 - Other specified postprocedural states Category: Surgical Plan: Continue treatment plans, antibiotics, monitoring drain output. Return to clinic 1 week. (2) S/P brachioplasty: Code(s): Z98.890 - Other specified postprocedural states Category: Surgical Plan: As above. (3) Chills (without fever): Code(s): R68.83 - Chills (without fever) Category: Medical Plan: Unclear etiology has no other symptoms. Possibly related to viral syndrome. Told patient to continue to monitor and contact us or primary care physician if no improvement or any worsening in the next 48 hours
[2023-09-29 08:39] VITALS: BP 121/84; PULSE 86; TEMP 35.7; O2SAT 97
== END 2023-09-29 09:02 | disposition home or self-care (01) ==
PROVIDERS: PCP Internal Medicine; Visit Provider Physician Assistant Surgical
DX: Z98.890 Other specified postprocedural states (principal); R68.83 Chills (without fever)
CPT/HCPCS: 99024

== ENCOUNTER → 2023-09-29 08:27 | Outpatient (BNVA) | payer OTHER, SELFPAY | PROVIDERS: PCP Internal Medicine; Visit Provider Physician Assistant Surgical | DX: Z48.89 Encounter for other specified surgical aftercare (principal); R68.83 Chills (without fever) | CPT/HCPCS: 99212 ==

== ENCOUNTER 2023-10-07 09:59 | Outpatient (AMB) | payer OTHER, SELFPAY ==
[2023-10-07 10:17] VITALS: BP 143/74; PULSE 75; TEMP 35.8; O2SAT 97
--- NOTE | 2023-10-07 10:17 | A.OFFVIS_ITS ---
VS Expanded 10/07/23 10:17 BP 143/74 H Blood Pressure Location Rt brachial Blood Pressure Position Sitting Pulse 75 Pulse Source Pulse Oximeter Temp 96.5 F L Temperature Source Tympanic Pulse Oximetry 97 Oxygen Delivery Method Room Air Intake Visit Reasons: (OV) PO Pannic/Brachio 09/15/23 Allergies latex Allergy (Severe, Verified 10/07/23 10:26) Anaphylaxis codeine Adverse Reaction (Intermediate, Verified 10/07/23 10:26) Gastrointestinal Upset HPI Comments Details: Patient is a pleasant 63-year-old female who returns to the office today in [facility] She is status post panniculectomy and bilateral brachioplasty performed on 09/15/2023. She reports she continues taking her antibiotics and following the meal plan as prescribed by Dr. Quevedo. She reports approximately 25 mL of serosanguineous fluid from the collection bulb daily. She denies any significant pain. [facility] Medical History Sleep apnea COVID-19 Back pain History of COVID-19 Asthma Lupus GERD (gastroesophageal reflux disease) Elevated cholesterol HTN (hypertension) Diabetes Surgical History S/P lumpectomy, right breast S/P laparoscopic sleeve gastrectomy History of partial hysterectomy Hx of colonoscopy Hx of cholecystectomy History of back surgery History of esophagogastroduodenoscopy (EGD) History of Social History Household Members: Unknown / Unable to assess Housing: House Are you a primary healthcare facility administrator to a significant other at home: No Do you 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 Umbilicus is viable. Assessment & Plan Assessment & Plan (1) S/P panniculectomy: Code(s): Z98.890 - Other specified postprocedural states Category: Surgical Plan: Continue to monitor drain output. Continue antibiotics and meal plan. Continue dressings and abdominal binder. Return to the office 1 week.
== END 2023-10-07 10:38 | disposition home or self-care (01) ==
PROVIDERS: PCP Internal Medicine; Visit Provider Physician Assistant Surgical
DX: Z98.890 Other specified postprocedural states (principal)
CPT/HCPCS: 99024

== ENCOUNTER → 2023-10-07 09:59 | Outpatient (BNVA) | payer OTHER, SELFPAY | PROVIDERS: PCP Internal Medicine; Visit Provider Physician Assistant Surgical | DX: Z48.817 Encounter for surgical aftercare following surgery on the skin and subcutaneous tissue (principal); Z90.3 Acquired absence of stomach [part of]; Z90.49 Acquired absence of other specified parts of digestive tract | CPT/HCPCS: 99212 ==

== ENCOUNTER 2023-10-14 14:25 | Outpatient (AMB) | payer OTHER, SELFPAY ==
--- NOTE | 2023-10-14 14:30 | MHC.OFFVISWM ---
VS Expanded 10/14/23 14:44 BP 163/74 H Blood Pressure Location Rt brachial Blood Pressure Position Sitting Pulse 73 Pulse Source Pulse Oximeter Temp 96.7 F L Temperature Source Temporal Artery Scan Pulse Oximetry 95 Oxygen Delivery Method Room Air Intake Visit Reasons: (OV) PO Pannic/Brachio 09/15/23 Allergies latex Allergy (Severe, Verified 10/14/23 14:44) Anaphylaxis codeine Adverse Reaction (Intermediate, Verified 10/14/23 14:44) Gastrointestinal Upset HPI Comments Details: Patient is a pleasant 63-year-old female, status post panniculectomy and brachioplasty performed on 09/15/2023. Overall, doing well. She continues to have approximately 25 mL of serous fluid from the collection bulb on a daily basis. She continues antibiotics and following meal plan per Dr. Quevedo. [facility] Medical History Sleep apnea COVID-19 Back pain History of COVID-19 Asthma Lupus GERD (gastroesophageal reflux disease) Elevated cholesterol HTN (hypertension) Diabetes Surgical History S/P lumpectomy, right breast S/P laparoscopic sleeve gastrectomy History of partial hysterectomy Hx of colonoscopy Hx of cholecystectomy History of back surgery History of esophagogastroduodenoscopy (EGD) History of Social History Household Members: Unknown / Unable to assess Housing: House Are you a primary customer care associate to a significant other at home: No Do you 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 Transverse abdominal incision is healing well without any open areas. Umbilicus is viable. Assessment & Plan Assessment & Plan (1) S/P panniculectomy: Code(s): Z98.890 - Other specified postprocedural states Category: Surgical Plan: Continue abdominal binder, antibiotics, meal plan per Dr. Quevedo. Continue to monitor drain output. (2) S/P brachioplasty: Code(s): Z98.890 - Other specified postprocedural states Category: Surgical Plan: Continue gauze wrap.
[2023-10-14 14:44] VITALS: BP 163/74; PULSE 73; TEMP 35.9; O2SAT 95
== END 2023-10-14 15:03 | disposition home or self-care (01) ==
PROVIDERS: PCP Internal Medicine; Visit Provider Physician Assistant Surgical
DX: Z98.890 Other specified postprocedural states (principal)
CPT/HCPCS: 99024

== ENCOUNTER → 2023-10-14 14:25 | Outpatient (BNVA) | payer OTHER, SELFPAY | PROVIDERS: PCP Internal Medicine; Visit Provider Physician Assistant Surgical | DX: Z48.817 Encounter for surgical aftercare following surgery on the skin and subcutaneous tissue (principal); Z98.890 Other specified postprocedural states | CPT/HCPCS: 99212 ==

== ENCOUNTER 2023-10-23 13:43 | Outpatient (AMB) | payer OTHER, SELFPAY ==
--- NOTE | 2023-10-23 13:51 | A.OFFVIS_ITS ---
VS Expanded 10/23/23 14:04 BP 165/88 H Blood Pressure Location Rt brachial Blood Pressure Position Sitting Pulse 84 Pulse Source Pulse Oximeter Temp 96.3 F L Temperature Source Tympanic Pulse Oximetry 96 Oxygen Delivery Method Room Air Intake Visit Reasons: (OV) PO Pannic/Brachio 09/15/23 Allergies latex Allergy (Severe, Verified 10/23/23 14:06) Anaphylaxis codeine Adverse Reaction (Intermediate, Verified 10/23/23 14:06) Gastrointestinal Upset HPI Comments Details: Patient is a pleasant 63-year-old female, status post panniculectomy and brach ioplasty performed on 09/15/2023. Overall, doing well. She continues to have approximately 25 mL of serous fluid from the collection bulb on a daily basis. She continues antibiotics and following meal plan per Dr. Quevedo. [facility] Medical History Sleep apnea COVID-19 Back pain History of COVID-19 Asthma Lupus GERD (gastroesophageal reflux disease) Elevated cholesterol HTN (hypertension) Diabetes Surgical History S/P lumpectomy, right breast S/P laparoscopic sleeve gastrectomy History of partial hysterectomy Hx of colonoscopy Hx of cholecystectomy History of back surgery History of esophagogastroduodenoscopy (EGD) History of Social History Household Members: Unknown / Unable to assess Housing: House Are you a primary interior plant caretaker to a significant other at home: No Do you presently have 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 Transverse abdominal incision also healing well without evidence of dehiscence, umbilicus viable. Approximately 20 mL serous fluid within the collection bulb Assessment & Plan Assessment & Plan (1) S/P panniculectomy: Code(s): Z98.890 - Other specified postprocedural states Category: Surgical Plan: Recommend decreasing her activity as she has been moving around the. Continue to monitor drain output. Continue dressings, antibiotics and meal plan. (2) S/P brachioplasty: Code(s): Z98.890 - Other specified postprocedural states Category: Surgical Plan: Healing well.
[2023-10-23 14:04] VITALS: BP 165/88; PULSE 84; TEMP 35.7; O2SAT 96
== END 2023-10-23 14:20 | disposition home or self-care (01) ==
PROVIDERS: PCP Internal Medicine; Visit Provider Physician Assistant Surgical
DX: Z98.890 Other specified postprocedural states (principal)
CPT/HCPCS: 99024

== ENCOUNTER → 2023-10-23 13:43 | Outpatient (BNVA) | payer OTHER, SELFPAY | PROVIDERS: PCP Internal Medicine; Visit Provider Physician Assistant Surgical | DX: Z48.817 Encounter for surgical aftercare following surgery on the skin and subcutaneous tissue (principal); Z98.890 Other specified postprocedural states | CPT/HCPCS: 99212 ==

== ENCOUNTER 2023-11-06 11:16 | Outpatient (AMB) | payer OTHER, SELFPAY ==
--- NOTE | 2023-11-06 11:44 | A.OFFVIS_ITS ---
VS Expanded 11/06/23 11:46 BP 181/92 H Blood Pressure Location Rt radial Pulse 78 Pulse Source Pulse Oximeter Temp 97.6 F Temperature Source Temporal Artery Scan Pulse Oximetry 98 Oxygen Delivery Method Room Air Intake Visit Reasons: (OV) PO Pannic/Brachio 09/15/23 Allergies latex Allergy (Severe, Verified 11/06/23 11:47) Anaphylaxis codeine Adverse Reaction (Intermediate, Verified 11/06/23 11:47) Gastrointestinal Upset HPI Comments Details: Very pleasant 63-year-old female who returns to the office today in follow-up. She is status post panniculectomy and brachioplasty performed on 09/15/2023. She does continue to do increased activity and has had approximately 20-25 mL serous fluid from her collection bulb. She has no complaints at this time, she continues her antibiotics. [facility] Medical History Sleep apnea COVID-19 Back pain History of COVID-19 Asthma Lupus GERD (gastroesophageal reflux disease) Elevated cholesterol HTN (hypertension) Diabetes Surgical History S/P lumpectomy, right breast S/P laparoscopic sleeve gastrectomy History of partial hysterectomy Hx of colonoscopy Hx of cholecystectomy History of back surgery History of esophagogastroduodenoscopy (EGD) History of Social History Household Members: Unknown / Unable to assess Housing: House Are you a primary health care law specialist to a significant other at home: No Do you presently have 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 Abdominal incision continues to heal and is doing well. Approximately 25 mL of serous fluid within the collection bulb. Assessment & Plan Assessment & Plan (1) S/P brachioplasty: Code(s): Z98.890 - Other specified postprocedural states Category: Surgical Plan: Continue current treatment plan. Continue antibiotics. Encouraged to do less activity and we will have her return to the office in 1 week.
[2023-11-06 11:46] VITALS: BP 181/92; PULSE 78; TEMP 36.4; O2SAT 98
== END 2023-11-06 11:47 | disposition home or self-care (01) ==
PROVIDERS: PCP Internal Medicine; Visit Provider Physician Assistant Surgical
DX: Z98.890 Other specified postprocedural states (principal)
CPT/HCPCS: 99024

== ENCOUNTER → 2023-11-06 11:16 | Outpatient (BNVA) | payer OTHER, SELFPAY | PROVIDERS: PCP Internal Medicine; Visit Provider Physician Assistant Surgical | DX: Z48.817 Encounter for surgical aftercare following surgery on the skin and subcutaneous tissue (principal); Z98.890 Other specified postprocedural states | CPT/HCPCS: 99212 ==

== ENCOUNTER 2023-11-13 10:52 | Outpatient (AMB) | payer OTHER, SELFPAY ==
--- NOTE | 2023-11-13 11:00 | MHC.OFFVISWM ---
VS Expanded 11/13/23 11:08 BP 136/77 Blood Pressure Location Rt brachial Blood Pressure Position Sitting Pulse 95 Pulse Source Pulse Oximeter Temp 95.5 F L Temperature Source Tympanic Pulse Oximetry 97 Oxygen Delivery Method Room Air Intake Visit Reasons: (OV) PO Pannic/Brachio 09/15/23 Allergies latex Allergy (Severe, Verified 11/13/23 11:12) Anaphylaxis codeine Adverse Reaction (Intermediate, Verified 11/13/23 11:12) Gastrointestinal Upset HPI Comments Details: Pleasant 63-year-old female returns to the office today in follow-up. She is status post panniculectomy and brachioplasty performed on 08/26/2023. She has been doing well. She states that she is going to visit family in [place] this weekend. She reports approximately 15-20 mL of serous fluid from the collection bulb. Given her likely increased activity, we have elected to keep her drain in place for 1 more week. She continues antibiotics and meal plan. [facility] Medical History Sleep apnea COVID-19 Back pain History of COVID-19 Asthma Lupus GERD (gastroesophageal reflux disease) Elevated cholesterol HTN (hypertension) Diabetes Surgical History (Reviewed 11/13/23 @ 11:20 by Lorelei Gaston [facility]) S/P lumpectomy, right breast S/P laparoscopic sleeve gastrectomy History of partial hysterectomy Hx of colonoscopy Hx of cholecystectomy History of back surgery History of esophagogastroduodenoscopy (EGD) History of Social History (Reviewed 11/06/23 @ 11:47 by Shelli Mendieta [facility]) Household Members: Unknown / Unable to assess Housing: House Are you a primary home care nurse to a significant other at home: No Do you 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 Approximately 20 mL of serous fluid within the collection bulb. Assessment & Plan Assessment & Plan (1) S/P panniculectomy: Code(s): Z98.890 - Other specified postprocedural states Category: Surgical Plan: Continue current meal plan, antibiotics, continue to monitor drain output. Likely drain out next week.
[2023-11-13 11:08] VITALS: BP 136/77; PULSE 95; TEMP 35.3; O2SAT 97
== END 2023-11-13 11:26 | disposition home or self-care (01) ==
PROVIDERS: PCP Internal Medicine; Visit Provider Physician Assistant Surgical
DX: Z98.890 Other specified postprocedural states (principal)
CPT/HCPCS: 99024

== ENCOUNTER → 2023-11-13 10:52 | Outpatient (BNVA) | payer OTHER, SELFPAY | PROVIDERS: PCP Internal Medicine; Visit Provider Physician Assistant Surgical | DX: Z48.817 Encounter for surgical aftercare following surgery on the skin and subcutaneous tissue (principal); Z98.890 Other specified postprocedural states; Z87.2 Personal history of diseases of the skin and subcutaneous tissue | CPT/HCPCS: 99212 ==

== ENCOUNTER 2023-11-20 11:21 | Outpatient (AMB) | payer OTHER, SELFPAY ==
--- NOTE | 2023-11-20 11:28 | A.OFFVIS_ITS ---
VS Expanded 11/20/23 12:01 BP 145/85 H Blood Pressure Location Rt brachial Blood Pressure Position Sitting Pulse 72 Pulse Source Pulse Oximeter Temp 97.8 F Temperature Source Temporal Artery Scan Pulse Oximetry 97 Intake Visit Reasons: (OV) PO Pannic/Brachio 09/15/23 Allergies latex Allergy (Severe, Verified 11/20/23 12:04) Anaphylaxis codeine Adverse Reaction (Intermediate, Verified 11/20/23 12:04) Gastrointestinal Upset HPI Comments Details: Patient is a pleasant 63-year-old female who returns to the office today in follow-up. She is status post panniculectomy and brachioplasty performed on 09/15/2023. She has done well. Continues antibiotics. She has noted approximately 20 mL of fluid from the drain. It has been in for an proximally 2 months. [facility] Medical History Sleep apnea COVID-19 Back pain History of COVID-19 Asthma Lupus GERD (gastroesophageal reflux disease) Elevated cholesterol HTN (hypertension) Diabetes Surgical History S/P lumpectomy, right breast S/P laparoscopic sleeve gastrectomy History of partial hysterectomy Hx of colonoscopy Hx of cholecystectomy History of back surgery History of esophagogastroduodenoscopy (EGD) History of Social History Household Members: Unknown / Unable to assess Housing: House Are you a primary career development coordinator to a significant other at home: No Do you presently have visiting nurse or other home services: 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 Assessment & Plan Assessment & Plan (1) S/P panniculectomy: Code(s): Z98.890 - Other specified postprocedural states Category: Surgical Plan: Continue antibiotics for 2 more weeks. She may shower on Thursday. Continue the abdominal binder. Follow-up in a week or 2.
[2023-11-20 12:01] VITALS: BP 145/85; PULSE 72; TEMP 36.6; O2SAT 97
== END 2023-11-20 12:00 | disposition home or self-care (01) ==
PROVIDERS: PCP Internal Medicine; Visit Provider Physician Assistant Surgical
DX: Z98.890 Other specified postprocedural states (principal)
CPT/HCPCS: 99024

== ENCOUNTER → 2023-11-20 11:21 | Outpatient (BNVA) | payer OTHER, SELFPAY | PROVIDERS: PCP Internal Medicine; Visit Provider Physician Assistant Surgical | DX: Z48.817 Encounter for surgical aftercare following surgery on the skin and subcutaneous tissue (principal); Z90.3 Acquired absence of stomach [part of] | CPT/HCPCS: 99212 ==

== ENCOUNTER 2023-11-27 14:23 | Outpatient (AMB) | payer OTHER, SELFPAY ==
--- NOTE | 2023-11-27 14:32 | MHC.OFFVISWM ---
VS Expanded 11/27/23 14:47 BP 118/58 L Blood Pressure Location Rt radial Blood Pressure Position Sitting Pulse 78 Pulse Source Pulse Oximeter Temp 97.8 F Temperature Source Temporal Artery Scan Pulse Oximetry 99 Oxygen Delivery Method Room Air Intake Visit Reasons: (OV) PO Pannic/Brachio 09/15/23 Allergies latex Allergy (Severe, Verified 11/27/23 14:48) Anaphylaxis codeine Adverse Reaction (Intermediate, Verified 11/27/23 14:48) Gastrointestinal Upset HPI Comments Details: Patient is a pleasant 63-year-old female who returns to the office today in follow-up. She is status post panniculectomy and brachioplasty performed on 09/15/2023. She has no particular complaints at today's visit. 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 She may resume abdominal exercises in approximately 3 weeks. She may start to do arm exercises. Continue meal plan. Follow-up in the office as scheduled.
[2023-11-27 14:47] VITALS: BP 118/58; PULSE 78; TEMP 36.6; O2SAT 99
== END 2023-11-27 16:16 | disposition home or self-care (01) ==
PROVIDERS: PCP Internal Medicine; Visit Provider Physician Assistant Surgical
DX: Z98.890 Other specified postprocedural states (principal)
CPT/HCPCS: 99024

== ENCOUNTER → 2023-11-27 14:23 | Outpatient (BNVA) | payer OTHER, SELFPAY | PROVIDERS: PCP Internal Medicine; Visit Provider Physician Assistant Surgical | DX: Z48.817 Encounter for surgical aftercare following surgery on the skin and subcutaneous tissue (principal); Z98.890 Other specified postprocedural states; Z87.2 Personal history of diseases of the skin and subcutaneous tissue | CPT/HCPCS: 99212 ==

== ENCOUNTER 2024-03-14 12:49 | Outpatient (AMB) | payer OTHER, SELFPAY ==
--- NOTE | 2024-03-14 12:54 | MHC.OFFVISWM ---
VS Expanded 03/14/24 13:03 BP 171/77 H Blood Pressure Location Rt brachial Blood Pressure Position Sitting Pulse 71 Pulse Source Pulse Oximeter Temp 97.1 F Temperature Source Temporal Artery Scan Pulse Oximetry 97 Oxygen Delivery Method Room Air Height 5 ft 4 in Weight 162 lb 9.6 oz BMI 27.9 Body Fat % 36.6 Body Fat Mass 59.6 Fat Free Mass 103.0 Visceral Fat Rating 9.0 Body Water % 44.8 Body Water Mass 72.8 Muscle Mass/Score 97.6 Basal Metabolic Rate/Score 1,399 Intake Visit Reasons: OV PO PANNIC/BRACHIO 09/15/23 Allergies latex Allergy (Severe, Verified 03/14/24 13:04) Anaphylaxis codeine Adverse Reaction (Intermediate, Verified 03/14/24 13:04) Gastrointestinal Upset Medication List - Last Reconciled 03/14/24 by DAYNA Rosenbaum aspirin 81 mg PO DAILY biotin 1,000 mcg PO DAILY blood-glucose meter (FreeStyle Lite Meter kit) As directed calcium carbonate-vitamin D3 600 mg-10 mcg (400 unit) 1 tab PO BEDTIME celecoxib 200 mg PO DAILY cholecalciferol (vitamin D3) (Vitamin D3) 25 mcg PO DAILY clotrimazole 1% 1 appl topical BID cyanocobalamin (vitamin B-12) (Vitamin B-12) 50 mcg PO DAILY diltiazem HCl CD 300 mg PO DAILY docusate sodium (Colace) 100 mg PO DAILY fluticasone furoate-vilanterol 200-25 mcg/dose (Breo Ellipta) 1 ea inhalation DAILY PRN omega 1-hfz-[id number]-fish oil 60-90-500 mg (Fish Oil) 1 cap PO BID pantoprazole 40 mg PO DAILY PRN rosuvastatin 5 mg PO BEDTIME HPI Comments Details: 63-year-old female s/p panniculectomy and brachioplasty performed on 09/15/2023. Also s/p LSG 05/29/2022. Returns to office today with complaint of ongoing excess skin of abdomen after panniculectomy. This is located laterally on both sides. Pt reports unpleasant odor with moisture, itchiness with skin irritation. This continues to bother her and she has to wear a compressive waistband to hold skin in place. Her weight has remained stable since skin removal surgery, only fluctuating a few pounds. 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) Patient Tobacco Use Status: Former Tobacco user Tobacco use type: Cigarette Physical Exam Const General: cooperative, comfortable and no acute distress Orientation/consciousness: patient oriented x3 GI Other: soft, nontender, nondistended, incisions well healed, no hernia, no masses center of panniculectomy incision is flat, but laterally on both sides pt does have overhang of excess skin Neuro General: patient oriented x3 Assessment & Plan Assessment & Plan (1) S/P brachioplasty: Code(s): Z98.890 - Other specified postprocedural states Category: Surgical (2) S/P panniculectomy: Code(s): Z98.890 - Other specified postprocedural states Category: Surgical (3) Overweight: Code(s): E66.3 - Overweight Category: Medical Plan Will discuss with Dr. Barfield and send photos. Pt does have some excess skin laterally which she reports continues to cause problems with skin integrity and unpleasant odor. I told her that I am unsure whether this can be dealt with in our office or perhaps a referral to a plastic surgeon may be appropriate to discuss options. Will contact pt once I discuss with Dr. Barfield. I spent a total of 30 minutes reviewing/updating records, examining the patient and counseling the patient on weight management as detailed above.
[2024-03-14 13:03] VITALS: BP 171/77; PULSE 71; TEMP 36.2; O2SAT 97; BMI 27.9
== END 2024-03-14 13:18 | disposition home or self-care (01) ==
PROVIDERS: PCP Internal Medicine; Visit Provider Physician Assistant Surgical
DX: E66.3 Overweight (principal); Z68.27 Body mass index [BMI] 27.0-27.9, adult; Z90.3 Acquired absence of stomach [part of]; Z98.84 Bariatric surgery status
CPT/HCPCS: 99214; G2211

== ENCOUNTER → 2024-03-14 12:49 | Outpatient (BNVA) | payer OTHER, SELFPAY | PROVIDERS: PCP Internal Medicine; Visit Provider Physician Assistant Surgical | DX: L98.7 Excessive and redundant skin and subcutaneous tissue (principal); E66.3 Overweight; Z68.27 Body mass index [BMI] 27.0-27.9, adult; Z90.3 Acquired absence of stomach [part of]; Z98.890 Other specified postprocedural states | CPT/HCPCS: 99212 ==